=== PATIENT | male | born 1940 | race Caucasian/White ===

== ENCOUNTER → 2017-01-12 | Outpatient (CLI) | payer MEDICARE, BC ==
--- NOTE | 2017-01-12 09:44 | XR ---
EXAMINATION TYPE: XR chest 2V DATE OF EXAM: 01/12/2017 9:37 AM HISTORY: Z01.818 pre op,I10 htn. REFERENCE: Previous study dated 02/26/2013. FINDINGS: The lungs are overinflated but clear. Pleural spaces are clear. The heart is not enlarged. Note is made of mild hypertrophic changes in both AC joints. There is hypertrophic spondylosis within the spine. IMPRESSION: 1. COPD. 2. NO ACUTE INTRATHORACIC ABNORMALITY.
[2017-01-12 09:45] LABS: EKG EKG PERFORMED
[2017-01-12 10:37] LABS: Basophils # (A) 0.1 k/uL (0-0.2); Basophils % (A) 1 %; CH 30.6; CHCM 33.7; Eosinophils # (A) 0.6 k/uL (0-0.7); Eosinophils % (A) 12 %; HCT 42.8 % (39.0-53.0); HDW 2.72; Luc # (Auto) 0.12; Luc % (Auto) 2; Lymphocytes # (A) 1.8 k/uL (1.0-4.8); Lymphocytes % (A) 34 %; MCH 29.8 pg (25.0-35.0); MCHC 32.6 g/dL (31.0-37.0); MCV 91.2 fL (80.0-100.0); Mean Platelet Volume 7.6; Monocytes # (A) 0.4 k/uL (0-1.0); Monocytes % (A) 7 %; Neutrophils # (A) 2.3 k/uL (1.3-7.7); Neutrophils % (A) 44 %; RBC 4.69 m/uL (4.30-5.90); RDW 12.8 % (11.5-15.5); WBC 5.3 k/uL (3.8-10.6); WBC (Perox) 5.37
[2017-01-12 10:39] LABS: INR 1.1 (<1.1); Partial Thromboplastin Time 25.4 sec (22.0-30.0); Prothrombin Time 10.8 sec (9.0-12.0)
[2017-01-12 10:48] LABS: ALT 21 U/L (21-72); AST 18 U/L (17-59); Alkaline Phosphatase 92 U/L (38-126); Anion Gap 11 mmol/L; Blood Urea Nitrogen 15 mg/dL (9-20); Calcium 9.6 mg/dL (8.4-10.2); Carbon Dioxide 27 mmol/L (22-30); Chloride 104 mmol/L (98-107); Glucose 100 mg/dL (74-99); Non-African American GFR(MDRD) >60 (>60 ml/min/1.73 sqM); Potassium 4.5 mmol/L (3.5-5.1); Sodium 142 mmol/L (137-145); Total Bilirubin 0.5 mg/dL (0.2-1.3); Total Protein 7.4 g/dL (6.3-8.2)
[2017-01-12 11:34] LABS: Appearance,Urine Clear (Clear); Bilirubin,Urine Negative (Negative); Glucose,Urine (UA) Negative (Negative); Ketones,Urine Negative (Negative); Leukocyte Esterase,Urine Negative (Negative); Nitrite,Urine Negative (Negative); Protein,Urine Negative (Negative); Specific Gravity,Urine 1.017 (1.001-1.035); UA Billing (MACRO vs. MICRO) CHEM; Urobilinogen,Urine <2.0 mg/dL (<2.0)
== END | disposition home or self-care (01) ==
LOC: RADXRMAIN 09:23
PROVIDERS: ATTEND Family Medicine
DX: Z01.818 Encounter for other preprocedural examination (principal); I10 Essential (primary) hypertension; J44.9 Chronic obstructive pulmonary disease, unspecified; F10.20 Alcohol dependence, uncomplicated
CPT/HCPCS: 36415; 71020; 80053; 81003; 85025; 85610; 85730; 93005

== ENCOUNTER 2017-02-10 07:51 | Emergency (ER) | payer MEDICARE, BC ==
[2017-02-10 08:00] VITALS: BP 139/72; PULSE 84; RESP 20; TEMP 99
--- NOTE | 2017-02-10 08:47 | XR ---
EXAMINATION TYPE: XR shoulder complete LT DATE OF EXAM: 02/10/2017 CLINICAL HISTORY: Left shoulder pain after gardening injury. Left shoulder surgery 2.5 weeks ago. TECHNIQUE: Three views of the left shoulder are obtained. COMPARISON: Chest x-ray January 12, 2017. FINDINGS: There is no acute fracture/dislocation evident in the left shoulder. Spurring at acromiocl avicular joint is redemonstrated. There is interval surgery with metallic hardware from reverse shoul viola arthroplasty identified. Position is satisfactory. The visualized ribs are intact and unremarkabl e. IMPRESSION: There is no acute fracture or dislocation in the left shoulder.
--- NOTE | 2017-02-10 08:55 | ED ---
General Adult HPI - General Chief complaint: Extremity Injury, Upper Stated complaint: left shoulder pain Time Seen by Provider: 02/10/17 08:10 Source: patient, RN notes reviewed Mode of arrival: ambulatory Limitations: no limitations - History of Present Illness Initial comments: Patient's patient 76-year-old male who presents emergency room today with a chief complaint of increased pain to the left shoulder. He does admit to recent surgery performed on 01/24/2017. He states he had a shoulder replacement. Patient does admit that he ran out of his Percocet 2 days ago. He states that yesterday he was doing some yard work he did have a sling on. He states is unsure. Over did it. He states down to his orthopedic over the phone advised him come to the emergency room for an x-ray. Patient admits that he's had some chronic pain numbness and tingling going down the left arm since surgery there is no new symptoms other than pain to the left shoulder. Patient denies any recent fever, chills, shortness of breath, chest pain, back pain, abdominal pain, nausea or vomiting, dysuria or hematuria, constipation or diarrhea, headaches or visual changes, or any other complaints. - Related Data Home Medications Medication Instructions Recorded Confirmed Pravastatin Sodium [Pravachol] 1 tab PO HS 02/10/17 02/10/17 amLODIPine [Norvasc] 1 tab PO DAILY 02/10/17 02/10/17 Previous Rx's Medication Instructions Recorded Hydrocodone/Acetaminophen [[place] 1 each PO Q6HR PRN #20 tab 02/10/17 5-325] Allergies Allergy/AdvReac Type Severity Reaction Status Date / Time No Known Allergies Allergy Verified 02/10/17 08:00 Review of Systems ROS Statement: Those systems with pertinent positive or pertinent negative responses have been documented in the HPI. ROS Other: All systems not noted in ROS Statement are negative. Past Medical History Past Medical History: Cancer, Hyperlipidemia, Sleep Apnea/CPAP/BIPAP Additional Past Medical History / Comment(s): PROTATE CANCER. USES CPAP. History of Any Multi-Drug Resistant Organisms: None Reported Past Surgical History: Back Surgery, Bladder Surgery, Orthopedic Surgery Additional Past Surgical History / Comment(s): LOWER BACK SURGERY. GROWTH ON URETER? hip replacement Past Anesthesia/Blood Transfusion Reactions: No Reported Reaction Past Psychological History: No Psychological Hx Reported Smoking Status: Never smoker Past Alcohol Use History: Occasional Past Drug Use History: None Reported - Past Family History Mother Family Medical History: No Reported History General Exam - General Exam Comments Initial Comments: General: The patient is awake and alert, in no distress, and does not appear acutely ill. Neck: The neck is supple, there is no tenderness or JVD. Cardiovascular: There is a regular rate and rhythm. No murmur, rub or gallop is appreciated. Respiratory: Lungs are clear to auscultation, respirations are non-labored, breath sounds are equal. No wheezes, stridor, rales, or rhonchi. Musculoskeletal: Normal appearance of the left shoulder obvious deformity. Shows limited range of motion due to pain. Sensations are intact with pulses equal bilaterally 2+. Neurological: A&O x 3. CN II-XII intact, There are no obvious motor or sensory deficits. Coordination appears grossly intact. Speech is normal. Skin: Skin is warm and dry and no rashes or lesions are noted. Psychiatric: Normal mood and affect. Limitations: no limitations Course Vital Signs 02/10/17 07:56 Temperature 99 F Pulse Rate 84 Respiratory 20 Rate Blood Pressure 139/72 O2 Sat by Pulse 97 Oximetry Medical Decision Making - Medical Decision Making X-ray reviewed and shows stable hardware with no other acute abnormalities. Results were discussed with the patient. Patient will be provided a short prescription of [place] advised follow-up with orthopedic doctor. Disposition Clinical Impression: Shoulder pain Disposition: HOME SELF-CARE Condition: Good Instructions: Shoulder Pain (ED) Additional Instructions: Please follow-up with your orthopedic doctor over the next 2 days. Please use pain medication as discussed and return to emergency room if there is any increase or worsening of symptoms or any other concerns. Prescriptions: Hydrocodone/Acetaminophen [[place] 5-325] 1 each PO Q6HR PRN #20 tab PRN Reason: Pain Referrals: Guillermo Dudley Jr, DO [Primary Care Provider] - 1-2 days Time of Disposition: 08:52
== END 2017-02-10 08:56 | disposition home or self-care (01) ==
LOC: EC 07:51
DX: M25.512 Pain in left shoulder (principal); E78.5 Hyperlipidemia, unspecified; Z79.899 Other long term (current) drug therapy; Z96.612 Presence of left artificial shoulder joint; Z85.46 Personal history of malignant neoplasm of prostate; Z98.890 Other specified postprocedural states
CPT/HCPCS: 99283

== ENCOUNTER 2017-03-07 10:50 | Emergency (ER) | payer MEDICARE, BC ==
[2017-03-07] MEDS ORDERED: MORPHINE SULFATE 4 MG/ML SYRINGE IV STA (11:21)
[2017-03-07] MEDS ORDERED: SODIUM CHLORIDE 0.9% 500 ML IV STA (11:21)
[2017-03-07] MEDS ORDERED: ONDANSETRON 4 MG/2 ML VIAL IVP STA (11:21)
[2017-03-07] MEDS ORDERED: SODIUM CHLORIDE 0.9% 1,000 ML IV STA ×2 (11:21)
[2017-03-07 12:25] LABS: ALT 40 U/L (21-72); AST 17 U/L (17-59); Alkaline Phosphatase 192 U/L (38-126); Anion Gap 11 mmol/L; Blood Urea Nitrogen 16 mg/dL (9-20); Calcium 9.7 mg/dL (8.4-10.2); Carbon Dioxide 26 mmol/L (22-30); Chloride 100 mmol/L (98-107); Glucose 120 mg/dL (74-99); Non-African American GFR(MDRD) >60 (>60 ml/min/1.73 sqM); Phosphorous 4.1 mg/dL (2.5-4.5); Potassium 4.6 mmol/L (3.5-5.1); Sodium 137 mmol/L (137-145); Total Bilirubin 0.9 mg/dL (0.2-1.3); Total Protein 7.6 g/dL (6.3-8.2)
[2017-03-07 12:27] LABS: Appearance,Urine Clear (Clear); Bilirubin,Urine Negative (Negative); Glucose,Urine (UA) Negative (Negative); Ketones,Urine Negative (Negative); Leukocyte Esterase,Urine Negative (Negative); Nitrite,Urine Negative (Negative); PH, Urine 5.5 (5.0-8.0); Protein,Urine Trace (Negative); Specific Gravity,Urine 1.022 (1.001-1.035); UA Billing (MACRO vs. MICRO) CHEM; Urobilinogen,Urine <2.0 mg/dL (<2.0)
--- NOTE | 2017-03-07 12:34 | ED ---
General Adult HPI - General Chief complaint: Neck Pain/Injury Stated complaint: rt side pain Time Seen by Provider: 03/07/17 11:00 Source: patient, RN notes reviewed, old records reviewed Mode of arrival: ambulatory Limitations: physical limitation - History of Present Illness Initial comments: This is a 76-year-old male to the ER for evaluation for this patient presents today for evaluation of headache, neck pain, shoulder pain. Upper back pain. Patient has significant history of shoulder surgery recently, recent history of stroke. Patient's symptoms going on for 3 days, he states he did overdo it in the yard last 3 days ago and has had increasing symptoms since then. No nausea vomiting no chest pain nephrosis of breath no fevers. No trauma. Patient was seen by family doctor today and sent to emergency room - Related Data Home Medications Medication Instructions Recorded Confirmed Pravastatin Sodium [Pravachol] 40 mg PO HS 02/10/17 03/07/17 amLODIPine [Norvasc] 5 mg PO DAILY 02/10/17 03/07/17 Acetaminophen [Tylenol] 325 mg PO Q6H PRN 03/07/17 03/07/17 L.acidoph,Paracasei, B.lactis 1 cap PO DAILY 03/07/17 03/07/17 [Probiotic] Turmeric Root Extract [Turmeric] 500 mg PO DAILY 03/07/17 03/07/17 oxyCODONE HCL [Roxicodone] 5 - 10 mg PO Q6H PRN 03/07/17 03/07/17 Allergies Allergy/AdvReac Type Severity Reaction Status Date / Time No Known Allergies Allergy Verified 03/07/17 11:45 Review of Systems ROS Statement: Those systems with pertinent positive or pertinent negative responses have been documented in the HPI. ROS Other: All systems not noted in ROS Statement are negative. Past Medical History Past Medical History: Cancer, Hyperlipidemia, Sleep Apnea/CPAP/BIPAP Additional Past Medical History / Comment(s): PROTATE CANCER. USES CPAP. History of Any Multi-Drug Resistant Organisms: None Reported Past Surgical History: Back Surgery, Bladder Surgery, Orthopedic Surgery Additional Past Surgical History / Comment(s): LOWER BACK SURGERY. GROWTH ON URETER? hip replacement Past Anesthesia/Blood Transfusion Reactions: No Reported Reaction Past Psychological History: No Psychological Hx Reported Smoking Status: Never smoker Past Alcohol Use History: Occasional Past Drug Use History: None Reported - Past Family History Mother Family Medical History: No Reported History General Exam Limitations: physical limitation General appearance: alert, in no apparent distress, anxious Head exam: Present: atraumatic, normocephalic, normal inspection Eye exam: Present: normal appearance, PERRL, EOMI. Absent: scleral icterus, conjunctival injection, periorbital swelling ENT exam: Present: normal exam, mucous membranes moist Neck exam: Present: normal inspection. Absent: tenderness, meningismus, lymphadenopathy Respiratory exam: Present: normal lung sounds bilaterally. Absent: respiratory distress, wheezes, rales, rhonchi, stridor Cardiovascular Exam: Present: regular rate, normal rhythm, normal heart sounds. Absent: systolic murmur, diastolic murmur, rubs, gallop, clicks GI/Abdominal exam: Present: soft, normal bowel sounds. Absent: distended, tenderness, guarding, rebound, rigid Extremities exam: Present: normal inspection, full ROM, normal capillary refill. Absent: tenderness, pedal edema, joint swelling, calf tenderness Back exam: Present: normal inspection Neurological exam: Present: alert, oriented X3, CN II-XII intact Psychiatric exam: Present: normal affect, normal mood Skin exam: Present: warm, dry, intact, normal color. Absent: rash Course Vital Signs 03/07/17 03/07/17 03/07/17 10:54 12:18 13:42 Temperature 97.5 F L 99.1 F Pulse Rate 80 83 Respiratory 20 16 Rate Blood Pressure 181/82 161/72 O2 Sat by Pulse 98 96 Oximetry - Reevaluation(s) Reevaluation #1: 03/07/17 14:14 spoke with patient PCP re symptoms Reevaluation #2: 03/07/17 14:51 Patient with difficult to control pain, EKG Findings - EKG Comments: EKG Findings:: EKG shows normal sinus rhythm rate of 77, MD 134, QRS 78, QTC 418 Medical Decision Making - Medical Decision Making [facility] ER for evaluation of neck pain, neck pain and right side of neck as well as left-sided neck, paraspinal. Patient's pain is improved at this time. Imaging is negative lab work is normal patient will be discharged home - Lab Data Result diagrams: 03/07/17 12:00 03/07/17 12:00 Lab Results 07/01/1703/07/17 03/07/17 Range/Units 12:00 12:00 12:00 WBC 9.5 (3.8-10.6) k/uL RBC 4.59 (4.30-5.90) m/uL Hgb 13.5 (13.0-17.5) gm/dL Hct 39.1 (39.0-53.0) % MCV 85.2 D (80.0-100.0) fL MCH 29.3 (25.0-35.0) pg MCHC 34.4 (31.0-37.0) g/dL RDW 13.3 (11.5-15.5) % Plt Count 257 (150-450) k/uL Neutrophils % 77 % Lymphocytes % 13 % Monocytes % 7 % Eosinophils % 1 % Basophils % 1 % Neutrophils # 7.3 (1.3-7.7) k/uL Lymphocytes # 1.2 (1.0-4.8) k/uL Monocytes # 0.6 (0-1.0) k/uL Eosinophils # 0.1 (0-0.7) k/uL Basophils # 0.1 (0-0.2) k/uL PT (9.0-12.0) sec INR (<1.1) APTT (22.0-30.0) sec Sodium 137 (137-145) mmol/L Potassium 4.6 (3.5-5.1) mmol/L Chloride 100 (98-107) mmol/L Carbon Dioxide 26 (22-30) mmol/L Anion Gap 11 mmol/L BUN 16 (9-20) mg/dL Creatinine 0.82 (0.66-1.25) mg/dL Est GFR (MDRD) Af Amer >60 (>60 ml/min/1.73 sqM) Est GFR (MDRD) Non-Af >60 (>60 ml/min/1.73 sqM) Glucose 120 H (74-99) mg/dL Calcium 9.7 (8.4-10.2) mg/dL Phosphorus 4.1 (2.5-4.5) mg/dL Magnesium 2.0 (1.6-2.3) mg/dL Total Bilirubin 0.9 (0.2-1.3) mg/dL AST 17 (17-59) U/L ALT 40 (21-72) U/L Alkaline Phosphatase 192 H (38-126) U/L Total Creatine Kinase 46 L (55-170) U/L CK-MB (CK-2) 0.9 (0.0-2.4) ng/mL CK-MB (CK-2) Rel Index 2.0 Troponin I <0.012 (0.000-0.034) ng/mL Total Protein 7.6 (6.3-8.2) g/dL Albumin 4.3 (3.5-5.0) g/dL Urine Color Urine Appearance (Clear) Urine pH (5.0-8.0) Ur Specific [place] (1.001-1.035) Urine Protein (Negative) Urine Glucose (UA) (Negative) Urine Ketones (Negative) Urine Blood (Negative) Urine Nitrite (Negative) Urine Bilirubin (Negative) Urine Urobilinogen (<2.0) mg/dL Ur Leukocyte Esterase (Negative) 03/07/17 03/07/17 Range/Units 12:00 12:00 WBC (3.8-10.6) k/uL RBC (4.30-5.90) m/uL Hgb (13.0-17.5) gm/dL Hct (39.0-53.0) % MCV (80.0-100.0) fL MCH (25.0-35.0) pg MCHC (31.0-37.0) g/dL RDW (11.5-15.5) % Plt Count (150-450) k/uL Neutrophils % % Lymphocytes % % Monocytes % % Eosinophils % % Basophils % % Neutrophils # (1.3-7.7) k/uL Lymphocytes # (1.0-4.8) k/uL Monocytes # (0-1.0) k/uL Eosinophils # (0-0.7) k/uL Basophils # (0-0.2) k/uL PT 11.3 (9.0-12.0) sec INR 1.1 (<1.1) APTT 28.3 (22.0-30.0) sec Sodium (137-145) mmol/L Potassium (3.5-5.1) mmol/L Chloride (98-107) mmol/L Carbon Dioxide (22-30) mmol/L Anion Gap mmol/L BUN (9-20) mg/dL Creatinine (0.66-1.25) mg/dL Est GFR (MDRD) Af Amer (>60 ml/min/1.73 sqM) Est GFR (MDRD) Non-Af (>60 ml/min/1.73 sqM) Glucose (74-99) mg/dL Calcium (8.4-10.2) mg/dL Phosphorus (2.5-4.5) mg/dL Magnesium (1.6-2.3) mg/dL Total Bilirubin (0.2-1.3) mg/dL AST (17-59) U/L ALT (21-72) U/L Alkaline Phosphatase (38-126) U/L Total Creatine Kinase (55-170) U/L CK-MB (CK-2) (0.0-2.4) ng/mL CK-MB (CK-2) Rel Index Troponin I (0.000-0.034) ng/mL Total Protein (6.3-8.2) g/dL Albumin (3.5-5.0) g/dL Urine Color Yellow Urine Appearance Clear (Clear) Urine pH 5.5 (5.0-8.0) Ur Specific [place] 1.022 (1.001-1.035) Urine Protein Trace H (Negative) Urine Glucose (UA) Negative (Negative) Urine Ketones Negative (Negative) Urine Blood Negative (Negative) Urine Nitrite Negative (Negative) Urine Bilirubin Negative (Negative) Urine Urobilinogen <2.0 (<2.0) mg/dL Ur Leukocyte Esterase Negative (Negative) - Radiology Data Radiology results: report reviewed (CT brain C-spine, angio head and neck negative for acute disease), image reviewed Disposition Clinical Impression: Shoulder pain, Strain of neck muscle Disposition: HOME SELF-CARE Condition: Good Instructions: Cervical Strain (ED), Cervical Sprain (ED) Referrals: Guillermo Dudley Jr, [Primary Care Provider] - 1-2 days
[2017-03-07 12:35] LABS: Basophils # (A) 0.1 k/uL (0-0.2); Basophils % (A) 1 %; CH 28.7; CHCM 33.8; Creatine Kinase 46 U/L (55-170); Eosinophils # (A) 0.1 k/uL (0-0.7); Eosinophils % (A) 1 %; HCT 39.1 % (39.0-53.0); HDW 2.77; HGB 13.5 gm/dL (13.0-17.5); Luc # (Auto) 0.17; Luc % (Auto) 2; Lymphocytes # (A) 1.2 k/uL (1.0-4.8); Lymphocytes % (A) 13 %; MCH 29.3 pg (25.0-35.0); MCHC 34.4 g/dL (31.0-37.0); Mean Platelet Volume 7.6; Monocytes # (A) 0.6 k/uL (0-1.0); Monocytes % (A) 7 %; Neutrophils # (A) 7.3 k/uL (1.3-7.7); Neutrophils % (A) 77 %; RBC 4.59 m/uL (4.30-5.90); RDW 13.3 % (11.5-15.5); WBC 9.5 k/uL (3.8-10.6); WBC (Perox) 9.54
[2017-03-07 12:37] LABS: INR 1.1 (<1.1); Partial Thromboplastin Time 28.3 sec (22.0-30.0); Prothrombin Time 11.3 sec (9.0-12.0)
[2017-03-07 12:38] LABS: MCV 85.2 fL (80.0-100.0)
[2017-03-07] MEDS ORDERED: HYDROmorphone 1 MG/ML 1 ML SYRINGE IVP STA (12:39)
[2017-03-07] MEDS ORDERED: DIAZEPAM 5 MG/ML 2 ML SYRINGE IVP STA (12:45)
[2017-03-07 12:48] LABS: Creatine Kinase MB 0.9 ng/mL (0.0-2.4); Troponin I <0.012 ng/mL (0.000-0.034)
[2017-03-07] MEDS: RX INFO: IV CONTRAST WAS GIVEN 1 EACH MISC MISCELLANE PRN ×2 (13:37→15:27)
[2017-03-07 13:42] VITALS: RESP 16
--- NOTE | 2017-03-07 14:17 | CT ---
EXAMINATION TYPE: CT brain nico napier DATE OF EXAM: 03/07/2017 COMPARISON: NONE HISTORY: Patient having severe neck pain, mainly right side CT DLP: 1383.[address] of the brain was performed. The ventricles, basal cisterns and sulci overlying the cerebral convexities demonstrate mild enlargem ent. There is no evidence for intracranial hemorrhage or sulcal effacement. There is decreased attenuatio n about the periventricular white matter and deep white matter of both cerebral hemispheres, compatib le with chronic small vessel ischemia. No mass effects are seen. If symptoms persist consider MRI. Osseous calvarium is intact. IMPRESSION: 1. Age related atrophic and chronic small vessel ischemic change without acute intracranial process seen at this time. CT Cervical Spine: Unenhanced CT of the cervical spine was performed with bone and soft tissue window settings submitted . Coronal and sagittal reconstruction is obtained. There is normal alignment and prevertebral soft tissues. No evidence for acute cervical fracture . Scattered degenerative disc disease and spondylosis. Biapical scarring. IMPRESSION: 1. No evidence for acute fracture or subluxation of the cervical spine.
--- NOTE | 2017-03-07 14:35 | CT ---
EXAMINATION TYPE: CT angio head neck DATE OF EXAM: 03/07/2017 COMPARISON: NONE HISTORY: Patient having severe neck pain, mainly right side CT DLP: 382.90 mGycm CONTRAST: Performed with IV Contrast, patient injected with 65 mL of Omnipaque 350. Combination Contrast CTA cervical carotids and [place] CTA cervical carotids with 3-D recons truction Contrast CTA of the cervical carotids was performed 3-D reconstruction imaging obtained at a separate workstation. Right carotid system: Mild plaque is seen of the right common carotid artery. There is mild plaque a lso noted at the carotid bulb and proximal ICA. No significant diameter reduction. ECA is patent. Right vertebral artery appears unremarkable. Left carotid system: Mild plaque is seen of the left common carotid artery. There is mild plaque als o noted at the carotid bulb and proximal ICS. No significant diameter reduction. ECA is patent. Lef t vertebral artery appears unremarkable. IMPRESSION: 1. No significant diameter reduction to account for the patient's symptoms. CTA [place] with 3-D reconstruction Contrast CTA of the [place] was performed 3-D reconstruction imaging obtained at a separate workstation. Vertebrobasilar system as well as intracranial portions of the internal carotid arteries and their ma samuel tributaries are patent. I do not see evidence for sizable aneurysm or vascular malformation. Pl ease note MRI provides greater sensitivity and specificity. Visualized brain appears grossly unremar kable. IMPRESSION: 1. No siginificant abnormality.
[2017-03-07] MEDS ORDERED: KETOROLAC 30 MG/ML 1 ML VIAL IVP STA (14:51)
[2017-03-07] MEDS ORDERED: ORPHENADRINE 30 MG/ML 2 ML VIAL IVP STA (14:51)
[2017-03-07 15:11] VITALS: BP 167/75; PULSE 88; TEMP 98.6
== END 2017-03-07 15:52 | disposition home or self-care (01) ==
LOC: EC 10:50
DX: S16.1XXA Strain of muscle, fascia and tendon at neck level, initial encounter (principal); M25.511 Pain in right shoulder; E78.5 Hyperlipidemia, unspecified; Z79.899 Other long term (current) drug therapy; X58.XXXA Exposure to other specified factors, initial encounter
CPT/HCPCS: 99285 ×2; 96374 ×2; 96375 ×6; 96361 ×4; 36415; 93005; 80053; 82550; 82553; 83735; 84100; 84484; 85025; 85610; 85730; 81003; 87086; 72125; 70496; 70450; 70498; J2270; J2360; J3360; Q9967; J2405; J1885; J1170

== ENCOUNTER → 2017-06-14 | Outpatient (CLI) | payer MEDICARE, BC ==
[2017-06-14 07:56] LABS: Basophils # (A) 0.1 k/uL (0-0.2); Basophils % (A) 2 %; CH 30.5; CHCM 33.2; Eosinophils # (A) 0.6 k/uL (0-0.7); Eosinophils % (A) 10 %; HCT 49.6 % (39.0-53.0); HDW 2.59; HGB 16.5 gm/dL (13.0-17.5); Luc # (Auto) 0.22; Luc % (Auto) 3; Lymphocytes # (A) 2.3 k/uL (1.0-4.8); Lymphocytes % (A) 34 %; MCH 30.7 pg (25.0-35.0); MCHC 33.3 g/dL (31.0-37.0); MCV 92.1 fL (80.0-100.0); Mean Platelet Volume 7.6; Monocytes # (A) 0.6 k/uL (0-1.0); Monocytes % (A) 8 %; Neutrophils % (A) 44 %; RBC 5.38 m/uL (4.30-5.90); RDW 14.8 % (11.5-15.5); WBC 6.8 k/uL (3.8-10.6); WBC (Perox) 7.07
[2017-06-14 09:32] LABS: ALT 35 U/L (21-72); AST 20 U/L (17-59); Alkaline Phosphatase 100 U/L (38-126); Blood Urea Nitrogen 20 mg/dL (9-20); Calcium 9.4 mg/dL (8.4-10.2); Carbon Dioxide 23 mmol/L (22-30); Cholesterol 262 mg/dL (<200); Glucose 99 mg/dL (74-99); HDL Cholesterol 45 mg/dL (40-60); Non-African American GFR(MDRD) >60 (>60 ml/min/1.73 sqM); Potassium 5.1 mmol/L (3.5-5.1); Sodium 141 mmol/L (137-145); Total Bilirubin 0.5 mg/dL (0.2-1.3); Total Protein 7.4 g/dL (6.3-8.2)
[2017-06-14 10:09] LABS: Anion Gap 12 mmol/L; Chloride 106 mmol/L (98-107)
[2017-06-14 10:10] LABS: Prostate Specific Antigen <0.10 ng/mL (0.00-4.00)
== END | disposition home or self-care (01) ==
LOC: LABWHC1 07:05
PROVIDERS: ATTEND Family Medicine
DX: Z00.00 Encounter for general adult medical examination without abnormal findings (principal); I10 Essential (primary) hypertension; Z85.46 Personal history of malignant neoplasm of prostate; Z86.73 Personal history of transient ischemic attack (TIA), and cerebral infarction without residual deficits
CPT/HCPCS: 36415; 80053; 80061; 84153; 84439; 84443; 85025

== ENCOUNTER → 2017-07-10 | Outpatient (CLI) | payer MEDICARE, BC ==
--- NOTE | 2017-07-10 09:18 | US ---
EXAMINATION TYPE: US carotid duplex BILAT DATE OF EXAM: 07/10/2017 COMPARISON: NONE CLINICAL HISTORY: 77-year-old male with headache and neck pain, CVA I63.9. TECHNIQUE: Carotid duplex ultrasound examination. Indirect Doppler criteria was utilized. FINDINGS: Mckeon scale images show moderate atherosclerotic change at the right bifurcation and mild on the left. EXAM MEASUREMENTS: RIGHT: Peak Systolic Velocity (PSV) cm/sec ----- Right CCA: 71.0 ----- Right ICA: 84.3 ----- Right ECA: 62.2 ICA/CCA ratio: 1.2 RIGHT: End Diastole cm/sec ----- Right CCA: 0.0 ----- Right ICA: 18.3 ----- Right ECA: 0.0 LEFT: Peak Systolic Velocity (PSV) cm/sec ----- Left CCA: 94.9 ----- Left ICA: 77.2 ----- Left ECA: 83.9 ICA/CCA ratio: 0.8 LEFT: End Diastole cm/sec ----- Left CCA: 13.3 ----- Left ICA: 21.6 ----- Left ECA: 7.3 VERTEBRALS (direction of flow): Right Vertebral: Antegrade Left Vertebral: Antegrade Rhythm: Normal IMPRESSION: No hemodynamically significant stenosis appreciated in either internal carotid artery. Criteria for Assigning % of Stenosis / Diameter reduction (Estimation based on the indirect measurements of the internal carotid artery velocities (ICA PSV). 1. Normal (no stenosis)=ICA PSV < 125 cm/s: ratio < 2.0: ICA EDV<40 cm/s. 2. Less than 50% stenosis=ICA PSV < 125 cm/s: ratio < 2.0: ICA EDV<40 cm/s. 3. 50 to 69% stenosis=ICA PSV of 125 to 230 cm/s: ration 2.0 ? 4.0: ICA EDV 40-100 cm/s. 4. Greater than 70% stenosis to near occlusion= ICA PSV > 230 cm/s: ratio > 4.0: ICA EDV > 100 cm/s. 5. Near occlusion= ICA PSV velocities may be low or undetectable: variable ratio and ICA EDV. 6. Total occlusion=unable to detect flow.
== END | disposition home or self-care (01) ==
LOC: RADUSWWP 08:09
PROVIDERS: ATTEND Psychiatry & Neurology Neurology
DX: I63.9 Cerebral infarction, unspecified (principal)
CPT/HCPCS: 93880

== ENCOUNTER → 2018-03-11 | Outpatient (CLI) | payer MEDICARE, BC ==
--- NOTE | 2018-03-11 13:58 | FL ---
MODIFIED SWALLOW / DEGLUTITION STUDY DATE OF EXAM: 03/11/2018 CLINICAL HISTORY: 77-year-old male Dysphagia. Patient with history of CVA and coughing with solid con sistencies. TECHNIQUE: Deglutition study is performed utilizing thin liquid barium, barium thick applesauce, and barium coated cracker. Total fluoroscopy time: 1 minute 6 seconds. Total images: None. Real-time fluoroscopy support was provided to speech pathology. COMPARISON: None. FINDINGS: The oral and pharyngeal phases show satisfactory initiation and propagation with all modalities teste d. Normal mastication is seen with solid modalities tested. There is no evidence of penetration or aspiration with any modality tested. No significant pharyngeal residue was appreciated. IMPRESSION: 1. Functional swallow. 2. Please refer to speech therapist notes for further details if necessary.
== END | disposition home or self-care (01) ==
LOC: RADFLMAIN 11:16
PROVIDERS: ATTEND Psychiatry & Neurology Neurology
DX: R13.10 Dysphagia, unspecified (principal)
CPT/HCPCS: 74230

== ENCOUNTER → 2018-04-24 | Outpatient (CLI) | payer MEDICARE, BC ==
--- NOTE | 2018-04-24 18:36 | CONS ---
CONSULTATION DATE OF SERVICE: 04/24/2018 This 77-year-old gentleman has been evaluated in sleep center for obstructive sleep apnea-hypopnea syndrome. The patient has history of obstructive sleep apnea for many years. He is on treatment with CPAP. He is using equipment every night since previous titration which was done in 2011. Patient increased his weight from 212 pounds up to 228 pounds. He had a stroke in August of 2016 while he already was on treatment with CPAP. Stroke was hemorrhagic. Presently, his sleep schedule from 9:00 p.m. to 6:00 a.m. to 7:00 a.m. no problems with falling asleep, although he has TV set in bedroom. He wakes up from sleep 2 times with nocturia. He takes a nap once after lunch. [place] Sleepiness Scale significantly increased to 14. 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 PAST SURGICAL HISTORY: Left hip replacement, left shoulder replacement, surgical treatment of prostate CA, back fusion, L4-5, S1. MEDICATIONS: 1. Norvasc. 2. Pravastatin. SOCIAL HISTORY: Negative for smoking. Alcohol consumption: 1 glass of wine with dinner daily. FAMILY HISTORY: Hypertension, hyperlipidemia, stroke, cancer. REVIEW OF SYSTEMS: Some numbness, mostly on the left side, changes of the feeling, difficulties to walk, changes of the balance, problem with balance, sleepiness during the day. PHYSICAL EXAMINATION: GENERAL A 77-year-old gentleman without distress. VITAL SIGNS BP 174/88, HR 68, RR 16, height 5 feet 7 inches, weight 228.2, body mass index 35.7, temperature 98.4, oxygen saturation at room air 92%. HEENT PERRLA, EOMI, evaluation of oropharynx showed tongue protrudes midline, extremely low position of soft palate. Neck Supple, no JVD. Thyroid is not palpable. Wide neck, 18-1/4 inches in circumference. LUNGS Clear to percussion and to auscultation. Good air exchange. No wheezing or rhonchi. HEART S1, S2 regular. No murmurs, gallops, or rubs. ABDOMEN obese, soft and nontender. Bowel sounds are present. No organomegaly appreciated. EXTREMITIES No clubbing or cyanosis. ANIMAL DAYCARE PROVIDER Awake, alert, and oriented X3. Cranial nerves 2 to 7 intact. There is no fasciculation or atrophy. noted. Some abnormalities of sensation on the left side, slightly unsteady gait. IMPRESSION: 1. Obstructive sleep apnea-hypopnea syndrome. The patient continued to use his CPAP equipment 100% of the time. Awakenings from sleep, sleepiness during the day while on treatment with CPAP. 2. Obesity, BMI 35.7. 3. History of stroke in August 2016 with residual weakness on the left side. 4. Status post left hip replacement. 5. Status post left shoulder replacement. 6. Hypertension, increased blood pressure today in the office. 7. Hyperlipidemia. 8. Status post back fusion, L4-5, S1. 9. History of prostate carcinoma, status post surgical treatment. PLAN: 1. Repeat CPAP titration for earlier for evaluation of effective CPAP pressure at the present time and after that, patient should get new CPAP unit. 2. Continue using CPAP equipment every night. 3. Sleep hygiene with regular time in bed for at least 8 hours. 4. No driving if feeling any sleepiness. 5. Fall precautions. 6. The patient was recommended to decrease amount of using alcohol and possibly stop it. Thank you very much for allowing me to participate in management of your patient. Sincerely, Salvador Aly MD, PhD, FAASM Diplomat of [employer] [place] [place] T[employer] Worker of [facility] [place] MMCRYSTAL / BRE: [id number] /
== END | disposition home or self-care (01) ==
LOC: SLEEP 16:06
PROVIDERS: ATTEND Internal Medicine
DX: G47.33 Obstructive sleep apnea (adult) (pediatric) (principal); I10 Essential (primary) hypertension; E78.5 Hyperlipidemia, unspecified; E66.9 Obesity, unspecified; Z68.35 Body mass index [BMI] 35.0-35.9, adult; Z96.642 Presence of left artificial hip joint; Z96.612 Presence of left artificial shoulder joint; Z86.73 Personal history of transient ischemic attack (TIA), and cerebral infarction without residual deficits; Z85.46 Personal history of malignant neoplasm of prostate; Z99.89 Dependence on other enabling machines and devices; Z98.1 Arthrodesis status; Z79.899 Other long term (current) drug therapy; Z98.890 Other specified postprocedural states
CPT/HCPCS: 99211

== ENCOUNTER → 2018-08-06 | Outpatient (CLI) | payer MEDICARE, BC ==
--- NOTE | 2018-08-06 19:37 | MR ---
EXAMINATION TYPE: MR brain wo/w con DATE OF EXAM: 08/06/2018 COMPARISON: CT brain 03/07/2017 HISTORY: TIA TECHNIQUE: Multiplanar, multisequence images of the brain and brainstem is performed without and with IV contras t, utilizing 10 mL intravenous Gadavist . FINDINGS: Diffusion weighted images demonstrate no evidence of a recent infarct. There is low signal present on inversion recovery and T2-weighted sequences at the level of the patient's low attenuatio n seen on prior CT brain suggesting hemosiderin deposition, similar low signal seen on diffusion-weig hted images with some serpiginous high signal not characteristic of subacute hemorrhage. There is no extra-axial fluid collection or significant white matter signal abnormality. The ventricular system and cisternal spaces are normal in size and appearance. The brain volume is age appropriate. Midline structures demonstrate normal morphology. The craniocervical junction appears within normal limits. Post contrast images demonstrate no abnormal enhancement. The dural venous sinuses appear pa tent. The visualized sinuses are remarkable for inflammatory change in the sphenoid, bilateral maxill kareem sinuses, ethmoid air cells and frontal sinus and the globes are intact. 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 No evidence of acute ischemia. Sinus disease.
--- NOTE | 2018-08-06 19:46 | MR ---
EXAMINATION TYPE: MR angio head wo con DATE OF EXAM: 08/06/2018 COMPARISON: MR brain same date HISTORY: Personal history of tia TECHNIQUE: Time of flight images focusing on the [place] were performed without contrast. Th ree-dimensional reconstructions were performed. FINDINGS: The vertebrobasilar system, internal carotid arteries are patent. There is no evident disse ction, aneurysm, embolus, or vascular malformation. IMPRESSION: Normal [place] MRA.
== END | disposition home or self-care (01) ==
LOC: RADMRIMAIN 10:48
PROVIDERS: ATTEND Family Medicine
DX: Z09 Encounter for follow-up examination after completed treatment for conditions other than malignant neoplasm (principal); Z86.73 Personal history of transient ischemic attack (TIA), and cerebral infarction without residual deficits
CPT/HCPCS: 82565; 84520; 70544; 70553; 36415; A9585

== ENCOUNTER → 2018-08-21 | Outpatient (CLI) | payer MEDICARE, BC ==
--- NOTE | 2018-08-21 17:00 | PN ---
PROGRESS NOTE DATE OF SERVICE: 08/21/2018 This patient is a 78-year-old gentleman who has been followed in the sleep center for treatment of obstructive sleep apnea-hypopnea syndrome. Recently the patient received a new CPAP unit and today is his first visit with the new CPAP unit. The patient continues to use his CPAP equipment every night for the whole night, but with the new CPAP he feels that the pressure is much higher in the new CPAP unit versus the previous pressure which he used before. Previous pressure was 10 cm of water. At present, after titration, his maximal pressure is up to 15 cm of water. The patient feels that his mouth is dry, and sometimes there is a gargling sound in his mask and tube. I checked his CPAP unit. Range of the pressure is from 5 to 15 cm of water. Most of the time pressure is in the range of 14 cm of water. Humidifier is at the level of 5. Usage is 100% of the nights for more than 4 hours, with average usage 10.1 hours per night. Leak is 26 L/minute. Apnea-hypopnea index 2.8, which is within normal range. [place] Sleepiness Scale has increased to 13. MEDICATIONS: Norvasc and pravastatin. PHYSICAL EXAMINATION: GENERAL: A pleasant patient in no distress. VITAL SIGNS: BP 147/75, HR 82, RR 16, weight 228.4, temperature 97.7. Patient's weight has increased by 16 pounds since the sleep study. HEENT: PERRLA, EOMI. Evaluation of oropharynx showed tongue protrudes midline. Extremely low position of soft palate. NECK: Supple. No JVD. Thyroid is not palpable. LUNGS: Clear to percussion and to auscultation. Good air exchange. No wheezing or rhonchi. HEART: S1, S2 regular. No murmurs, gallops or rubs. ABDOMEN: Obese. EXTREMITIES: No clubbing or cyanosis. 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 IMPRESSION: 1. Obstructive sleep apnea-hypopnea syndrome. The patient demonstrated 100% compliance with treatment, benefitting from treatment. 2. Obesity. 3. History of stroke 2 years ago. 4. Status post left hip replacement. 5. Status post left shoulder replacement. 6. Hypertension. 7. Hyperlipidemia. 8. Status post back fusion. 9. History of prostate carcinoma, status post surgical treatment. PLAN: 1. Patient will continue to use CPAP equipment every night for the whole night. 2. We will try to decrease maximal pressure to 13 cm of water. 3. I believe dryness in the mouth is related to opening his mouth during sleep. Leak is slightly high for the nasal pillow mask. We will try a chinstrap. 4. Losing weight. 5. Sleep hygiene with regular time in bed for 8 hours. 6. No driving if feeling any sleepiness. 7. I discussed with the patient the position of his CPAP unit. CPAP unit should stay lower than his head to prevent movement of the water from condensation from the tube to the mask. 8. Prescription for all necessary CPAP supplies. Thank you very much for allowing me to participate in the management of your patient. Sincerely, Salvador Aly MD, PhD, FAASM Diplomat of [employer] [employer] [place] [employer] Manager Technical Services of [facility] [place] MMODL / MOHINDERN: [id number] /
== END | disposition home or self-care (01) ==
LOC: SLEEP 13:17
PROVIDERS: ATTEND Internal Medicine
DX: G47.33 Obstructive sleep apnea (adult) (pediatric) (principal); E66.9 Obesity, unspecified; I10 Essential (primary) hypertension; E78.5 Hyperlipidemia, unspecified; Z86.73 Personal history of transient ischemic attack (TIA), and cerebral infarction without residual deficits; Z96.642 Presence of left artificial hip joint; Z85.46 Personal history of malignant neoplasm of prostate; Z98.1 Arthrodesis status; Z79.899 Other long term (current) drug therapy; Z99.89 Dependence on other enabling machines and devices

== ENCOUNTER → 2019-08-07 | Outpatient (CLI) | payer MEDICARE, BC ==
--- NOTE | 2019-08-07 13:04 | SFUN ---
SLEEP CENTER FOLLOW UP NOTE DATE OF SERVICE: 08/07/2019 A 79-year-old gentleman has been followed in the Sleep Center for treatment of obstructive sleep apnea-hypopnea syndrome. Patient continued to use his CPAP equipment every night for the whole night without significant problems. Sleeps well with that, getting all his supplies in time. [place] Sleepiness Scale today is 10, which is borderline. I checked CPAP unit, range of the pressure 5-13, average pressure 12.5. Leak is slightly high for the nasal pillow mask 34 L/minute. At the same time, apnea-hypopnea index was 2.0, which is absolutely normal. MEDICATIONS: Norvasc, pravastatin. PHYSICAL EXAM: Patient in no distress. BP 152/80, HR 69, RR 14, height 5, 7-1/4, weight 216.6, body mass index 33.6, temperature 98.4, oxygen saturation at room air 95%. OROPHARYNX: Extremely low soft palate. Mallampati 4. ABDOMEN: Slightly obese. NECK: Supple, no JVD. Thyroid is not palpable. LUNGS: Clear to percussion and to auscultation. Good air exchange. No wheezing or rhonchi. HEART: S1, S2 regular. No murmurs, gallops, or rubs. EXTREMITIES: No clubbing or cyanosis. 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 Cranial nerves 2 to 7 intact. There is no fasciculation or atrophy. noted. No focal deficits observed. IMPRESSION: 1. Obstructive sleep apnea-hypopnea syndrome. Patient demonstrated great compliance with treatment, benefitting from treatment. Reading from CPAP unit showed slightly higher leak from the mask. 2. Obesity. 3. History of stroke about 3 years ago. 4. Status post left hip replacement. 5. Status post left shoulder replacement. 6. Hypertension. 7. Hyperlipidemia. 8. Status post back fusion. 9. History of prostate carcinoma, status post surgical treatment. PLAN: 1. Patient will continue to use CPAP equipment every night for the whole night. 2. Patient will use a chin strap. 3. Losing weight. 4. Sleep hygiene with regular time in bed for 7-1/2 or 8 hours. 5. No driving if feeling sleepiness. 6. I will maintain prescriptions for all necessary CPAP supplies. 7. Followup visit in 1 year or earlier if patient has any problems. Thank you very much for allowing me to participate in the management of your patient. Sincerely, Salvador Aly MD, PhD, FAASM Diplomat of [place] [employer] [place] [employer] Worker of [facility] [place] MMCRYSTAL / BRE: [id number] /
== END | disposition home or self-care (01) ==
LOC: SLEEP 09:35
PROVIDERS: ATTEND Internal Medicine
DX: G47.33 Obstructive sleep apnea (adult) (pediatric) (principal); E66.9 Obesity, unspecified; I10 Essential (primary) hypertension; E78.5 Hyperlipidemia, unspecified; Z68.33 Body mass index [BMI] 33.0-33.9, adult; Z86.73 Personal history of transient ischemic attack (TIA), and cerebral infarction without residual deficits; Z85.46 Personal history of malignant neoplasm of prostate; Z96.612 Presence of left artificial shoulder joint; Z96.642 Presence of left artificial hip joint; Z98.1 Arthrodesis status; Z79.899 Other long term (current) drug therapy

== ENCOUNTER → 2019-11-03 | Outpatient (CLI) | payer MEDICARE, BC ==
[2019-11-03 16:59] LABS: Basophils # (A) 0.1 k/uL (0-0.2); Basophils % (A) 1 %; Eosinophils # (A) 0.3 k/uL (0-0.7); Eosinophils % (A) 4 %; HCT 45.8 % (39.0-53.0); HGB 15.5 gm/dL (13.0-17.5); Lymphocytes # (A) 1.9 k/uL (1.0-4.8); Lymphocytes % (A) 25 %; MCH 31.8 pg (25.0-35.0); MCHC 33.9 g/dL (31.0-37.0); MCV 93.9 fL (80.0-100.0); Mean Platelet Volume 8.9; Monocytes # (A) 0.5 k/uL (0-1.0); Monocytes % (A) 6 %; Neutrophils # (A) 4.5 k/uL (1.3-7.7); Neutrophils % (A) 61 %; Platelet Count 184 k/uL (150-450); RBC 4.88 m/uL (4.30-5.90); RDW 13.1 % (11.5-15.5); WBC 7.4 k/uL (3.8-10.6)
[2019-11-03 17:54] LABS: Erythrocyte Sedimentation Rate 6 mm/hr (0-15)
[2019-11-04 00:02] LABS: ALT 32 U/L (10-49); AST 27 U/L (14-35); African American GFR (CKD) 83.2 (60.0-200.0); Alkaline Phosphatase 97 U/L (41-126); C Reactive Protein <0.4 mg/dL (0.0-0.8); Calcium 9.6 mg/dL (8.7-10.3); Carbon Dioxide 27.4 mmol/L (21.6-31.8); Chloride 106 mmol/L (96-109); Globulin 2.3 g/dL (1.6-3.3); Glucose 90 mg/dL (70-110); Non-African American GFR(CKD) 71.8 (60.0-200.0); Sodium 143 mmol/L (135-145); Total Bilirubin 0.5 mg/dL (0.3-1.2); Total Protein 6.9 g/dL (6.2-8.2)
== END | disposition home or self-care (01) ==
LOC: LABWHC1 15:49
PROVIDERS: ATTEND Nurse Practitioner Family
DX: Z00.00 Encounter for general adult medical examination without abnormal findings (principal); R53.83 Other fatigue; R42 Dizziness and giddiness
CPT/HCPCS: 36415; 80053; 82248; 85025; 85652; 86140

== ENCOUNTER → 2020-10-19 | Outpatient (CLI) | payer MEDICARE ==
--- NOTE | 2020-10-19 13:13 | CT ---
EXAMINATION TYPE: CT brain wo con DATE OF EXAM: 10/19/2020 COMPARISON: 03/07/2017 and MRI 08/06/2018 HISTORY: 80-year-old male Vertigo, left side weakness TECHNIQUE: Examination was done in axial plane without intravenous contrast. Coronal and sagittal r econstructions performed. CT DLP: 1192 mGycm Automated exposure control for dose reduction was used. FINDINGS: There is no evidence of acute intracranial hemorrhage, acute ischemic changes, mass, mass-effect, or extra-axial fluid collection. There is no effacement of cerebral sulci or basal subarachnoid cister ns. There is no hydrocephalus. There is no midline shift. Mckeon-white matter distinction is preserv ed. Poorly defined area of subtle high density in the cortical/subcortical right lateral frontoparietal j unction, referred to the axial image 39 and sagittal image 16 corresponding to the area of hemosideri n deposition on MRI of 08/06/2018. Partially empty sella. Mild cerebral cortical volume loss similar to prior exam. Mild/moderate mucosal thickening ethmoid air cells and mild within the maxillary sinuses. Globes are intact. Mastoid air cells are well pneumatized. IMPRESSION: No acute intracranial abnormality seen. Subtle cortical/subcortical high density along the lateral as pect of the right frontoparietal junction corresponds to the area of remote infarct and chronic hemos iderin deposition seen on the 08/06/2018 MRI. No acute intracranial abnormality seen. If symptoms pers ist, repeat MRI can be performed.
== END | disposition home or self-care (01) ==
LOC: RADCTMAIN 12:34
PROVIDERS: ATTEND Family Medicine
DX: G93.89 Other specified disorders of brain (principal); I69.354 Hemiplegia and hemiparesis following cerebral infarction affecting left non-dominant side
CPT/HCPCS: 70450

== ENCOUNTER → 2020-11-03 | Outpatient (CLI) | payer MEDICARE ==
[2020-11-03 10:35] LABS: Basophils # (A) 0.05 X 10*3/uL (0.00-0.10); Basophils % (A) 0.9 %; Eosinophils # (A) 0.49 X 10*3/uL (0.04-0.35); Eosinophils % (A) 8.3 %; HCT 43.4 % (39.6-50.0); HGB 14.6 g/dL (13.0-17.0); Lymphocytes # (A) 2.03 X 10*3/uL (0.90-5.00); Lymphocytes % (A) 34.6 %; MCH 31.5 pg (27.0-32.0); MCHC 33.6 g/dL (32.0-37.0); MCV 93.5 fL (80.0-97.0); Mean Platelet Volume 10.5 fL (9.5-12.2); Monocytes # (A) 0.63 X 10*3/uL (0.20-1.00); Monocytes % (A) 10.7 %; Neutrophils # (A) 2.61 X 10*3/uL (1.80-7.70); Neutrophils % (A) 44.5 %; Platelet Count 205 X 10*3/uL (140-440); RBC 4.64 X 10*6/uL (4.40-5.60); RDW 12.1 % (11.5-14.5); WBC 5.87 X 10*3/uL (4.50-10.00)
[2020-11-03 10:49] LABS: African American GFR (CKD) 82.6 (60.0-200.0); Albumin 4.1 g/dL (3.80-4.90); Albumin/Globulin Ratio 1.28 (1.60-3.17); Anion Gap 3.4 mmol/L (4.00-12.00); Calcium 9.5 mg/dL (8.7-10.3); Carbon Dioxide 29.6 mmol/L (21.6-31.8); Chol/HDL Ratio 4.49; Globulin 3.2 g/dL (1.6-3.3); LDL Cholesterol,Calculated 121.6 mg/dL (0.0-131.0); Non-African American GFR(CKD) 71.3 (60.0-200.0); Potassium 4.6 mmol/L (3.5-5.5); Total Bilirubin 0.5 mg/dL (0.3-1.2); Total Protein 7.3 g/dL (6.2-8.2); VLDL Calculation 21.4 mg/dL (5.00-40.00)
[2020-11-03 15:29] LABS: Prostate Specific Antigen 0.1 ng/mL (0.0-6.5)
== END | disposition home or self-care (01) ==
LOC: LABWHC1 07:07
PROVIDERS: ATTEND Family Medicine
DX: Z85.46 Personal history of malignant neoplasm of prostate (principal); I69.354 Hemiplegia and hemiparesis following cerebral infarction affecting left non-dominant side
CPT/HCPCS: 36415; 80053; 80061; 84153; 84443; 85025

== ENCOUNTER 2021-01-16 19:54 | Emergency (ER) | payer MEDICARE ==
[2021-01-16 20:04] VITALS: TEMP 97.8
--- NOTE | 2021-01-16 20:28 | ED ---
Chest Pain HPI - General Chief Complaint: Chest Pain Stated Complaint: High Blood Pressure Time Seen by Provider: 01/16/21 20:10 Source: patient Mode of arrival: wheelchair Limitations: no limitations - History of Present Illness Initial Comments: 80-year-old male presents today for chief complaint of chest pain. Patient states that around 2 PM he had an hour episode of aching pain in the chest. He denies pressure jaw pain and arm pain nausea vomiting indigestion. Patient denies any associated shortness of breath. Patient denies leg swelling mom says or history of myocardial infarction. Patient states that his was an old nurse and gave him 325 of aspirin prior to arrival> Pt states he hasnt had chest pain since 2 PM but recorded elevation blood pressures reading this afternoon and his made him come to the ER. On arrival pt is not diaphoretic, he has no complaints and does not appear in distress. BP is found to be elevated, but not critical. - Related Data Home Medications Medication Instructions Recorded Confirmed Pravastatin Sodium [Pravachol] 40 mg PO HS 02/10/17 03/07/17 amLODIPine [Norvasc] 5 mg PO DAILY 02/10/17 03/07/17 Acetaminophen [Tylenol] 325 mg PO Q6H PRN 03/07/17 03/07/17 L.acidoph,Paracasei, B.lactis 1 cap PO DAILY 03/07/17 03/07/17 [Probiotic] Turmeric Root Extract [Turmeric] 500 mg PO DAILY 03/07/17 03/07/17 oxyCODONE HCL [Roxicodone] 5 - 10 mg PO Q6H PRN 03/07/17 03/07/17 Allergies Allergy/AdvReac Type Severity Reaction Status Date / Time No Known Allergies Allergy Verified 01/16/21 20:00 Review of Systems ROS Statement: Those systems with pertinent positive or pertinent negative responses have been documented in the HPI. ROS Other: All systems not noted in ROS Statement are negative. Past Medical History Past Medical History: Cancer, Hyperlipidemia, Sleep Apnea/CPAP/BIPAP Additional Past Medical History / Comment(s): PROTATE CANCER. USES CPAP. History of Any Multi-Drug Resistant Organisms: None Reported Past Surgical History: Back Surgery, Bladder Surgery, Orthopedic Surgery Additional Past Surgical History / Comment(s): LOWER BACK SURGERY. GROWTH ON URETER? hip replacement Past Anesthesia/Blood Transfusion Reactions: No Reported Reaction Past Psychological History: No Psychological Hx Reported Smoking Status: Never smoker Past Alcohol Use History: Occasional Past Drug Use History: None Reported - Past Family History Mother Family Medical History: No Reported History General Exam - General Exam Comments Initial Comments: General: The patient is awake and alert, in no distress, and does not appear acutely ill. Eye: Pupils are equal, round and reactive to light, extra-ocular movements are intact. No nystagmus. There is normal conjunctiva bilaterally. No signs of icterus. Ears, nose, mouth and throat: There are moist mucous membranes and no oral lesions. Neck: The neck is supple, there is no tenderness or JVD. Cardiovascular: There is a regular rate and rhythm. No murmur, rub or gallop is appreciated. Respiratory: Lungs are clear to auscultation, respirations are non-labored, breath sounds are equal. No wheezes, stridor, rales, or rhonchi. Gastrointestinal: Soft, non-distended, non-tender abdomen without masses or organomegaly noted. There is no rebound or guarding present. Musculoskeletal: Normal ROM, no tenderness. Strength 5/5. Sensation intact. Radial and DP pulses equal bilaterally 2+. Neurological: A&O x 3. CN II-XII intact grossly, There are no obvious motor or sensory deficits. Coordination appears grossly intact. Speech is normal. Skin: Skin is warm and dry and no rashes or lesions are noted. Psychiatric: Cooperative, appropriate mood & affect, normal judgment. Limitations: no limitations Course Vital Signs 01/16/21 01/16/21 01/16/21 20:01 21:19 21:47 Temperature 97.8 F Pulse Rate 73 61 63 Respiratory 18 16 16 Rate Blood Pressure 167/72 158/87 169/84 O2 Sat by Pulse 97 96 94 L Oximetry Chest Pain MDM - MDM Patient had chest pain 6+ hours ago. none currently. 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 recommend 2nd troponin he refused, states he will not stay any LONGER. pt troponin drawn > 6 hours after onset of symptoms and is currently asymptomatic. EKG no acute findings. discussedd case wtih attending who is agreeable to discharge with return for symptoms reoccurring/new symptoms. pt is to see pcp tomorrow. Disposition Clinical Impression: Chest discomfort Disposition: HOME SELF-CARE Condition: Good Instructions (If sedation given, give patient instructions): Chest Pain (ED) Additional Instructions: Please use medication as discussed. Please follow-up with family doctor in the next 2 days. Please return to emergency room if the symptoms increase or worsen or for any other concerns. Is patient prescribed a controlled substance at d/c from ED?: No Referrals: Ronnie Guillermo MD [Primary Care Provider] - 1-2 days Time of Disposition: 21:37
[2021-01-16 20:37] LABS: Basophils # (A) 0.1 k/uL (0-0.2); Basophils % (A) 1 %; Eosinophils # (A) 0.4 k/uL (0-0.7); Eosinophils % (A) 6 %; HCT 45.2 % (39.0-53.0); HGB 15.2 gm/dL (13.0-17.5); Lymphocytes # (A) 1.7 k/uL (1.0-4.8); Lymphocytes % (A) 26 %; MCH 31.3 pg (25.0-35.0); MCHC 33.6 g/dL (31.0-37.0); MCV 93.1 fL (80.0-100.0); Monocytes # (A) 0.4 k/uL (0-1.0); Monocytes % (A) 6 %; Neutrophils # (A) 3.8 k/uL (1.3-7.7); Neutrophils % (A) 59 %; Platelet Count 192 k/uL (150-450); RBC 4.86 m/uL (4.30-5.90); RDW 13.6 % (11.5-15.5); WBC 6.5 k/uL (3.8-10.6)
[2021-01-16 20:46] LABS: INR 0.9 (<1.2); Partial Thromboplastin Time 24.7 sec (22.0-30.0); Prothrombin Time 10.2 sec (9.0-12.0)
--- NOTE | 2021-01-16 20:56 | XR ---
EXAMINATION TYPE: XR chest 2V DATE OF EXAM: 01/16/2021 COMPARISON: 01/12/2017 HISTORY: Chest pain TECHNIQUE: 2 views FINDINGS: There is no heart failure nor confluent pneumonic infiltrate. There is left shoulder prosth esis. There are chest leads. Costophrenic angles are clear. IMPRESSION: No active cardiopulmonary disease. Normal heart.
[2021-01-16 20:59] LABS: ALT 28 U/L (4-49); AST 32 U/L (17-59); African American GFR (CKD) >90 (>60 ml/min/1.73 sqM); Albumin 4.2 g/dL (3.5-5.0); Alkaline Phosphatase 110 U/L (38-126); Anion Gap 8 mmol/L; Blood Urea Nitrogen 18 mg/dL (9-20); Calcium 9.1 mg/dL (8.4-10.2); Carbon Dioxide 24 mmol/L (22-30); Chloride 107 mmol/L (98-107); Glucose 110 mg/dL (74-99); Magnesium 1.8 mg/dL (1.6-2.3); Non-African American GFR(CKD) 83 (>60 ml/min/1.73 sqM); Potassium 4.2 mmol/L (3.5-5.1); Sodium 139 mmol/L (137-145); Total Bilirubin 0.4 mg/dL (0.2-1.3); Total Protein 6.8 g/dL (6.3-8.2)
[2021-01-16 21:20] VITALS: RESP 16
[2021-01-16 21:48] VITALS: BP 169/84; PULSE 63
== END 2021-01-16 21:48 | disposition home or self-care (01) ==
LOC: EC 19:54
DX: R07.89 Other chest pain (principal); E78.5 Hyperlipidemia, unspecified; G47.30 Sleep apnea, unspecified
CPT/HCPCS: 36415; 71046; 80053; 83735; 83880; 84484; 85025; 85610; 85730; 93005; 99285

== ENCOUNTER → 2023-06-20 | Outpatient (CLI) | payer MEDICARE ==
--- NOTE | 2023-06-20 16:20 | P.SLEEP ---
History of Present Illness DATE: 06/20/2023 CONSULTATION/NEW PATIENT EVALUATION HISTORY OF PRESENT ILLNESS/SLEEP-WAKE EVALUATION: 83 year old gentleman had been evaluated in the sleep center for obstructive sleep apnea hypopnea syndrome. I know patient for many years. Last time I saw him in August 2019. Patient continued to use his CPAP equipment every night for the whole night. I checked his CPAP unit. The range of the pressure 5-13, average 12.4 cm of water. Usage is 100% of nights, average 10.9 hours per night. Leak is slightly increased at 32 L/m apnea-hypopnea index is 2 times per hour which is perfect. CPAP unit is old, sometimes create noise during the night. SLEEP SCHEDULE: Usually sleep schedule from 8 PM to 7 AM 7 days a week. FALLING ASLEEP: No problems with falling asleep. DURING SLEEP: While using CPAP patient may wake up from sleep only 1-2 times with nocturia No history of hypnogogical hallucinations, sleep paralysis, or cataplexy. DURING THE DAY/WAKE STATE: No significant tiredness and sleepiness during the day. [place] sleepiness scale is 7. Patient may take 1 nap after known. PAST MEDICAL HISTORY: Stroke in 2016, hypertension, prostate see, hyperlipidemia, back problems. 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 MEDICATIONS: Pravastatin 30 mg once a day, allopurinol 300 mg once a day, Norvasc 5 mg once a day. SOCIAL HISTORY: Negative for smoking, alcohol consumption occasional. FAMILY HISTORY: Hypertension, asthma. REVIEW OF SYSTEMS: Awakenings from sleep up to 2 times with nocturia. No fevers. No double vision. No recent chest pain. No shortness of breath. No abdominal pain. No bleeding episodes. No blood in urine. No seizure episodes. PHYSICAL EXAMINATION: GENERAL: A pleasant patient without any distress. VITAL SIGNS: BP 164/77 , HR 91 , RR 16 , weight 233.4 pounds, height 5 foot 7 inches, body mass index 36.4 . HEENT: PERRLA, EOMI. Evaluation of oropharynx showed tongue protrudes midline, low position of soft palate Mallampati 4. NECK: Supple. No JVD. Thyroid is not palpable. 18-3/4 inches in circumference. LUNGS: Clear to percussion and to auscultation. Good air exchange. No wheezing or rhonchi. HEART: S1, S2 regular. No murmurs, gallops or rubs. ABDOMEN: Soft and nontender. Bowel sounds are present. No organomegaly appreciated. EXTREMITIES: No clubbing or cyanosis. 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 Cranial nerves 2 to 7 intact. There is no fasciculation or atrophy noted. No focal deficits observed. ASSESSMENT: 1. Obstructive sleep apnea hypopnea syndrome for many years. Patient continued to use his CPAP equipment every night for the whole night. Normal respiration on CPAP. CPAP unit is using old. 2. Obesity, body mass index 36.4. 3. 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 4. Hyperlipidemia. 5 hypertension. 6 . Status post stroke in 2016. 7. Status post prostatectomy for cancer. 8. Status post left hip replacement. 9 . Status post left shoulder replacement. 10. Status post back fusion. . PLAN: 1. Prescription to replace CPAP unit. 2. Patient will continue to use CPAP equipment every night for the whole night. 3. No driving if feel any sleepiness. Patient is aware of civil and criminal liability for unsafe driving. 4. Sleep hygiene with regular sleep time for at least 7.5-8 hours. 5. Watching losing weight. 6. Follow up visit in 12 months after patient will get new CPAP equipment to evaluate clinical response on treatment, compliance with treatment and make a ny necessary adjustments related to mask fitting pressure and humidification. Thank you very much for referring this patient for consultation. Sincerely, Salvador Aly MD, PhD, FAASM. Diplomat of [place] [employer], Sleep Medicine Board by [place] [employer] [place] [employer] Printed [employer] Boards Router of [facility] [place] Past Medical History Past Medical History: Cancer, Hyperlipidemia, Sleep Apnea/CPAP/BIPAP Additional Past Medical History / Comment(s): PROTATE CANCER. USES CPAP. History of Any Multi-Drug Resistant Organisms: None Reported Past Surgical History: Back Surgery, Bladder Surgery, Orthopedic Surgery Additional Past Surgical History / Comment(s): LOWER BACK SURGERY. GROWTH ON URETER? hip replacement Past Anesthesia/Blood Transfusion Reactions: No Reported Reaction Past Psychological History: No Psychological Hx Reported Smoking Status: Never smoker Past Alcohol Use History: Occasional Past Drug Use History: None Reported - Past Family History Mother Family Medical History: No Reported History Medications and Allergies Home Medications Medication Instructions Recorded Confirmed Type Pravastatin Sodium [Pravachol] 40 mg PO HS 02/10/17 03/07/17 History amLODIPine [Norvasc] 5 mg PO DAILY 02/10/17 03/07/17 History Acetaminophen [Tylenol] 325 mg PO Q6H PRN 03/07/17 03/07/17 History L.acidoph,Paracasei, B.lactis 1 cap PO DAILY 03/07/17 03/07/17 History [Probiotic] Turmeric Root Extract [Turmeric] 500 mg PO DAILY 03/07/17 03/07/17 History oxyCODONE HCL [Roxicodone] 5 - 10 mg PO Q6H PRN 03/07/17 03/07/17 History Allergies Allergy/AdvReac Type Severity Reaction Status Date / Time No Known Allergies Allergy Verified 01/16/21 20:00 Sleep Note - Sleep Note Sleep Note: Temperature: Pulse Rate: Respiratory Rate: Blood Pressure: SpO2: Height: Weight: BMI: Neck Circumference:
== END ==
LOC: 3 N SLEEP 15:06
PROVIDERS: ATTEND Internal Medicine
DX: G47.33 Obstructive sleep apnea (adult) (pediatric) (principal); E66.9 Obesity, unspecified; E78.5 Hyperlipidemia, unspecified; I10 Essential (primary) hypertension; Z98.890 Other specified postprocedural states; Z96.642 Presence of left artificial hip joint; Z96.612 Presence of left artificial shoulder joint; Z85.46 Personal history of malignant neoplasm of prostate; Z68.36 Body mass index [BMI] 36.0-36.9, adult; Z86.73 Personal history of transient ischemic attack (TIA), and cerebral infarction without residual deficits; Z85.828 Personal history of other malignant neoplasm of skin; Z98.1 Arthrodesis status
CPT/HCPCS: 99211

== ENCOUNTER 2024-03-25 23:32 | Inpatient (IN) | payer MEDICARE ==
--- NOTE | 2024-03-25 23:54 | ED ---
Chest Pain HPI - General Chief Complaint: Chest Pain Stated Complaint: chest pain Time Seen by Provider: 03/25/24 23:36 Source: patient Mode of arrival: EMS Limitations: no limitations - History of Present Illness Initial Comments: This is a 83-year-old male to the ER for evaluation he does admit to doing more activity this week and then his normal baseline. Patient states he began with chest pain last night maybe 2 nights ago but tonight he was unable to sleep and restless comes in with chest pain here in the ER. He does admit to a stress test 50 years ago history of high blood pressure and high cholesterol. Chest pain is persistent here in the ER and he feels unwell Complaint: chest pain -: days(s) Pain Location: substernal, left chest Pain Radiation: none Severity: moderate Severity scale (1-10): 6 Quality: tightness, heaviness Consistency: constant Improves With: nothing Worsens With: nothing Anginal Symptoms: sense of impending doom Other Symptoms: palpitations Treatments Prior to Arrival: none - Related Data Home Medications Medication Instructions Recorded Confirmed amLODIPine [Norvasc] 5 mg PO DAILY 02/10/17 03/26/24 Pravastatin Sodium [Pravachol] 80 mg PO DAILY 03/26/24 03/26/24 allopurinoL 300 mg PO DAILY 03/26/24 03/26/24 Allergies Allergy/AdvReac Type Severity Reaction Status Date / Time No Known Allergies Allergy Verified 03/26/24 09:14 Review of Systems ROS Statement: Those systems with pertinent positive or pertinent negative responses have been documented in the HPI. ROS Other: All systems not noted in ROS Statement are negative. EKG Findings - EKG Comments: EKG Findings:: EKG is sinus 77 FL 183 QRS 85 QTc 405 - EKG Results: EKG: interpreted by NARCISA Past Medical History Past Medical History: Cancer, CVA/TIA, Hyperlipidemia, Sleep Apnea/CPAP/BIPAP Additional Past Medical History / Comment(s): PROTATE CANCER. USES CPAP. CVA 2016 History of Any Multi-Drug Resistant Organisms: None Reported Past Surgical History: Back Surgery, Bladder Surgery, Orthopedic Surgery Additional Past Surgical History / Comment(s): LOWER BACK SURGERY. GROWTH ON URETER? hip replacement Past Anesthesia/Blood Transfusion Reactions: No Reported Reaction Past Psychological History: No Psychological Hx Reported Smoking Status: Never smoker Past Alcohol Use History: Occasional Past Drug Use History: None Reported - Past Family History Mother Family Medical History: No Reported History General Exam Limitations: no limitations General appearance: alert, in no apparent distress Head exam: Present: atraumatic, normocephalic, normal inspection Eye exam: Present: normal appearance, PERRL, EOMI. Absent: scleral icterus, conjunctival injection, periorbital swelling ENT exam: Present: normal exam, mucous membranes moist Neck exam: Present: normal inspection. Absent: tenderness, meningismus, lymphadenopathy Respiratory exam: Present: normal lung sounds bilaterally. Absent: respiratory distress, wheezes, rales, rhonchi, stridor Cardiovascular Exam: Present: regular rate, normal rhythm, normal heart sounds. Absent: systolic murmur, diastolic murmur, rubs, gallop, clicks GI/Abdominal exam: Present: soft, normal bowel sounds. Absent: distended, tenderness, guarding, rebound, rigid Extremities exam: Present: normal inspection, full ROM, normal capillary refill. Absent: tenderness, pedal edema, joint swelling, calf tenderness Back exam: Present: normal inspection Neurological exam: Present: alert, oriented X3, CN II-XII intact Psychiatric exam: Present: normal affect, normal mood Skin exam: Present: warm, dry, intact, normal color. Absent: rash Course Vital Signs 03/25/24 03/26/24 03/26/24 23:34 00:41 00:54 Temperature 98.0 F Pulse Rate 80 70 69 Respiratory 18 20 Rate Blood Pressure 146/73 108/61 154/75 O2 Sat by Pulse 93 L 96 Oximetry 03/26/24 03/26/24 00:55 01:00 Temperature Pulse Rate 65 77 Respiratory 20 19 Rate Blood Pressure 133/71 133/71 O2 Sat by Pulse 93 L 94 L Oximetry - Reevaluation(s) Reevaluation #1: 03/26/24 00:14 Records reviewed Reevaluation #2: 03/26/24 00:14 Patient symptoms are persistent with chest pain Reevaluation #3: 03/26/24 00:14 Informed of results questions answered Reevaluation #4: Was pt. sent in by a medical professional or institution (, PA, PAVING INSPECTOR, urgent care, hospital, or [facility]...) When possible be specific @ -no Did you speak to anyone other than the patient for history (EMS, parent, family, police, friend...)? What history was obtained from this source @ -no Did you review nursing and triage notes (agree or disagree)? Why? @ -agree Are old charts reviewed (outside hosp., previous admission, EMS record, old EKG, old radiological studies, urgent care reports/EKG's, [facility] records)? Report findings @ -yes Differential Diagnosis (chest pain, altered mental status, abdominal pain women, abdominal pain men, vaginal bleeding, weakness, fever, dyspnea, syncope, headache, dizziness, GI bleed, back pain, seizure, CVA, palpatations, mental health, musculoskeletal)? @ -prior EKG interpreted by me (3pts min.). @ -yes X-rays interpreted by me (1pt min.). @ -yes negative for acute disease CT interpreted by me (1pt min.). @ -no U/S interpreted by me (1pt. min.). @ -no What testing was considered but not performed or refused? (CT, X-rays, U/S, labs)? Why? @ -none What meds were considered but not given or refused? Why? @ -none Did you discuss the management of the patient with other professionals (professionals i.e. DrSarah, PA, PAVING INSPECTOR, lab, RT, psych nurse, psychiatric social worker supervisor, cake stripper, teacher, second officer, case management assistant)? Give summary @ -no Was smoking cessation discussed for >3mins.? @ -no Was critical care preformed (if so, how long)? @ -yes31 Were there social determinants of health that impacted care today? How? (Homelessness, low income, unemployed, alcoholism, drug addiction, transportation, low edu. Level, literacy, decrease access to med. care, [facility], rehab)? @ -none Was there de-escalation of care discussed even if they declined (Discuss DNR or withdrawal of care, Hospice)? DNR status @ -no What co-morbidities impacted this encounter? (DM, HTN, Smoking, COPD, CAD, Cancer, CVA, ARF, Chemo, Hep., AIDS, mental health diagnosis, sleep apnea, morbid obesity)? @ -none Was patient admitted / discharged? Hospital course, mention meds given and route, prescriptions, significant lab abnormalities, going to OR and other pertinent info. @ - 83 Female to ER for evaluation of chest pain for a few days through the weekend and worse tonight. Patient has initial EKG showing T wave inversion second EKG does show ST elevation inferior leads Noted Undiagnosed new problem with uncertain prognosis? @ -no Drug Therapy requiring intensive monitoring for toxicity (Heparin, Nitro, Insulin, Cardizem)? @ -no Were any procedures done? @ -no Diagnosis/symptom? @ -ACS Acute, or Chronic, or Acute on Chronic? @ -Acute Uncomplicated (without systemic symptoms) or Complicated (systemic symptoms)? @ -Complicated Side effects of treatment? @ -no Exacerbation, Progression, or Severe Exacerbation? @ -exacerbation Poses a threat to life or bodily function? How? (Chest pain, [place], [place], pneumonia, PE, COPD, DKA, ARF, appy, cholecystitis, CVA, Diverticulitis, Homicidal, Suicidal, threat to staff... and all critical care pts) @ -yes ACS ACS Reevaluation #5: Differential Chest Pain: Stable Angina, Unstable Angina, STEMI, NSTEMI Aortic Dissection, Pneumothorax, Musculoskeletal, Esophageal Spasm GERD, Cholecystitis, Pancreatitis, Zoster, this is not meant to be an all-inclusive list. - Consultations Consultation #1: Cardiology aware of patient EKG changes and change in EKG Consultation #2: Sound who agrees to admit this patient Chest Pain MDM - MDM 83 Female to ER for evaluation of chest pain for a few days through the weekend and worse tonight. Patient has initial EKG showing T wave inversion second EKG does show ST elevation inferior leads Critical Care Time Critical Care Time: Yes Total Critical Care Time: 31 Disposition Clinical Impression: Chest pain, ACS (acute coronary syndrome) Disposition: ADMITTED IP TO THIS HOSP Condition: Serious Is patient prescribed a controlled substance at d/c from ED?: No Time of Disposition: 00:20
[2024-03-26 00:32] LABS: Basophils # (A) 0.1 k/uL (0-0.2); Basophils % (A) 0 %; Eosinophils # (A) 0.1 k/uL (0-0.7); Eosinophils % (A) 1 %; HCT 47.1 % (39.0-53.0); Lymphocytes # (A) 2.2 k/uL (1.0-4.8); Lymphocytes % (A) 18 %; MCH 32.6 pg (25.0-35.0); MCHC 33.9 g/dL (31.0-37.0); MCV 96.1 fL (80.0-100.0); Mean Platelet Volume 8.6; Monocytes # (A) 0.9 k/uL (0-1.0); Monocytes % (A) 8 %; Neutrophils # (A) 8.5 k/uL (1.3-7.7); Neutrophils % (A) 71 %; Platelet Count 185 k/uL (150-450); WBC 11.9 k/uL (3.8-10.6)
[2024-03-26] MEDS: ASPIRIN 81 MG PO STA (00:33)
[2024-03-26] MEDS: NITROGLYCERIN SL TABS 0.4 MG TAB SUBLINGUAL PRN (00:33)
[2024-03-26] MEDS: HEPARIN SODIUM 1,000 UN/ML (10ML VL) IV ONE ×2 (00:34→23:42)
[2024-03-26 00:36] LABS: ALT 52 U/L (4-49); African American GFR (CKD) >90 (>60 ml/min/1.73 sqM); Albumin 4.4 g/dL (3.5-5.0); Anion Gap 9 mmol/L; Blood Urea Nitrogen 19 mg/dL (9-20); Calcium 9.5 mg/dL (8.4-10.2); Carbon Dioxide 24 mmol/L (22-30); Chloride 103 mmol/L (98-107); Glucose 120 mg/dL (74-99); Lipase 33 U/L (23-300); Non-African American GFR(CKD) 81 (>60 ml/min/1.73 sqM); Sodium 136 mmol/L (137-145); Total Bilirubin 1.2 mg/dL (0.2-1.3); Total Protein 7.3 g/dL (6.3-8.2)
[2024-03-26 00:37] LABS: AST 47 U/L (17-59); Alkaline Phosphatase 84 U/L (38-126); Magnesium 1.8 mg/dL (1.6-2.3); Potassium 4.5 mmol/L (3.5-5.1)
[2024-03-26] MEDS: HEPARIN SOD,PORK IN 0.45% NACL 25,000 UNIT in 0.45% NACL 1 250ML.BAG IV SCH ×2 (00:37→23:43)
[2024-03-26 00:44] LABS: Partial Thromboplastin Time 25.5 sec (22.0-30.0); Prothrombin Time 11.3 sec (10.0-12.5)
[2024-03-26 00:45] LABS: NT-Pro-B-Type Natriuretic Pept 118 pg/mL
[2024-03-26] MEDS: HEPARIN SODIUM 1,000 UN/ML (10ML VL) IVP STA (00:49)
--- NOTE | 2024-03-26 00:56 | XR ---
EXAM: XR Chest, 1 View CLINICAL HISTORY: ITS.REASON XR Reason: chest pain TECHNIQUE: Frontal view of the chest. COMPARISON: 01/12/17 FINDINGS: Lungs: Question of mild left basilar opacities. Right lung is clear. Pleural space: No significant pleural effusion. No pneumothorax. Heart: Unremarkable. No cardiomegaly or pulmonary vascular congestion. Bones/joints: Reverse left shoulder arthroplasty. No acute osseous findings. IMPRESSION: Question of mild left basilar opacities, which could represent atelectasis more likely than infiltrate. Correlate clinically.
--- NOTE | 2024-03-26 01:16 | P.CRDCN ---
History of Present Illness History of present illness: HISTORY OF PRESENTING ILLNESS This is a pleasant 83-year-old with past medical history significant for prior stroke, hyperlipidemia, obstructive sleep apnea, obesity and mild to moderate alcohol use who presents secondary chest pain over the last 3 days. He states he was somewhat overdoing over the weekend in terms of having a republican with his family and he and his son believe he was overly active. He also drinks somewhat more alcohol than normal and usually drinks 6 ounces of hard alcohol a day. Since approximately Sunday to Sunday he has been having chest pain which feels dull and has been fairly constant. It has been getting worse and therefore presented to the emergency department. He denies any associated shortness breath however did have some nausea and some diaphoresis, felt somewhat hot like he had a fever at one point.initial EKG showed normal sinus rhythm, normal axis with T-wave inversions lead 3 and aVF however repeat EKG showedST elevation II, III and aVF. he currently rates his pain at a 5 out of 10. Does not smoke however does drink alcohol and no illicit drugs. Does have family history of his father dying of an his VT in his 80s. REVIEW OF SYSTEMS At the time of my exam: CONSTITUTIONAL: Denies fever or chills. CARDIOVASCULAR: +chest pain, no shortness of breath, orthopnea, PND or palpitations. RESPIRATORY: Denies cough. GASTROINTESTINAL: Denies abdominal pain, diarrhea, constipation, nausea or vomiting. MUSCULOSKELETAL: Denies myalgias. NEUROLOGIC: Denies numbness, tingling or weakness. ENDOCRINE: Denies fatigue, weight change, polydipsia or polyurina. GENITOURINARY: Denies burning, hematuria or urgency with micturation. HEMATOLOGIC: Denies history of anemia or bleeding. PHYSICAL EXAMINATION Vital signs reviewed. CONSTITUTIONAL: No apparent distress. HEENT: Head is normocephalic. Pupils are equal, round. Sclerae anicteric. Mucous membranes of the mouth are moist. No JVD. No carotid bruit. CHEST EXAMINATION: Lungs are clear to auscultation. No chest wall tenderness is noted on palpation or with deep breathing. HEART EXAMINATION: Regular rate and rhythm. S1, S2 heard. No murmurs, gallops or rub. ABDOMEN: Soft, nontender. Positive bowel sounds. EXTREMITIES: 2+ peripheral pulses, no lower extremity edema and no calf tender ness. NEUROLOGIC EXAMINATION: Patient is awake, alert and oriented x3. ASSESSMENT Evolving inferior STEMI Hypertension Prior history of stroke Hyperlipidemia Alcohol abuse Family history of father with VT in his 80's PLAN patient's initial EKG did not show ST elevation however evolving STEMI with repeat EKG showing inferior ST elevations. We therefore discussed heart catheterization as patient is agreeable. Aspirin and heparin drip. Check 2-D echo. Further recommendations to follow. Past Medical History Past Medical History: Cancer, CVA/TIA, Hyperlipidemia, Sleep Apnea/CPAP/BIPAP Additional Past Medical History / Comment(s): PROTATE CANCER. USES CPAP. CVA 2015 History of Any Multi-Drug Resistant Organisms: None Reported Past Surgical History: Back Surgery, Bladder Surgery, Orthopedic Surgery Additional Past Surgical History / Comment(s): LOWER BACK SURGERY. GROWTH ON URETER? hip replacement Past Anesthesia/Blood Transfusion Reactions: No Reported Reaction Past Psychological History: No Psychological Hx Reported Smoking Status: Never smoker Past Alcohol Use History: Occasional Past Drug Use History: None Reported - Past Family History Mother Family Medical History: No Reported History Medications and Allergies Home Medications Medication Instructions Recorded Confirmed Type Pravastatin Sodium [Pravachol] 40 mg PO HS 02/10/17 03/07/17 History amLODIPine [Norvasc] 5 mg PO DAILY 02/10/17 03/07/17 History Acetaminophen [Tylenol] 325 mg PO Q6H PRN 03/07/17 03/07/17 History L.acidoph,Paracasei, B.lactis 1 cap PO DAILY 03/07/17 03/07/17 History [Probiotic] Turmeric Root Extract [Turmeric] 500 mg PO DAILY 03/07/17 03/07/17 History oxyCODONE HCL [Roxicodone] 5 - 10 mg PO Q6H PRN 03/07/17 03/07/17 History Allergies Allergy/AdvReac Type Severity Reaction Status Date / Time No Known Allergies Allergy Verified 03/25/24 23:42 Physical Exam Vitals: Vital Signs Temp Pulse Resp BP Pulse Ox 03/26/24 01:00 75 19 124/84 93 L 03/26/24 00:55 65 20 133/71 93 L 03/26/24 00:41 70 20 108/61 96 03/25/24 23:34 98.0 F 80 18 146/73 93 L Intake and Output 03/25/24 03/25/24 03/26/24 14:59 22:59 06:59 Other: Weight 104.326 kg Results 03/25/24 23:40 03/25/24 23:40 Cardiac Enzymes 03/25/24 Range/Units 23:40 AST 47 (17-59) U/L Coagulation 03/25/24 Range/Units 23:40 PT 11.3 (10.0-12.5) sec APTT 25.5 (22.0-30.0) sec CBC 03/25/24 Range/Units 23:40 WBC 11.9 H (3.8-10.6) k/uL RBC 4.90 (4.30-5.90) m/uL Hgb 16.0 (13.0-17.5) gm/dL Hct 47.1 (39.0-53.0) % Plt Count 185 (150-450) k/uL Comprehensive Metabolic Panel 03/25/24 Range/Units 23:40 Sodium 136 L (137-145) mmol/L Potassium 4.5 (3.5-5.1) mmol/L Chloride 103 (98-107) mmol/L Carbon Dioxide 24 (22-30) mmol/L BUN 19 (9-20) mg/dL Creatinine 0.85 (0.66-1.25) mg/dL Glucose 120 H (74-99) mg/dL Calcium 9.5 (8.4-10.2) mg/dL AST 47 (17-59) U/L ALT 52 H (4-49) U/L Alkaline Phosphatase 84 (38-126) U/L Total Protein 7.3 (6.3-8.2) g/dL Albumin 4.4 (3.5-5.0) g/dL Current Medications Generic Name Dose Route Start Last Admin Trade Name Freq PRN Reason Stop Dose Admin Aspirin 325 mg 03/26/24 12:00 Aspirin 325 Mg Tab PO DAILY MAX Heparin Sodium/Sodium Chloride 250 mls @ 10 mls/hr 03/26/24 00:15 03/26/24 00:37 25,000 unit/ Sodium Chloride IV 9.585 units/kg/hr .Q24H MAX 10 mls/hr Administration Protocol 9.585 UNITS/KG/HR Nitroglycerin 0.4 mg 03/26/24 00:11 03/26/24 00:51 Nitroglycerin Sl Tabs 0.4 Mg Tab SUBLINGUAL 0.4 mg Q5M PRN Administration Chest Pain Intake and Output 03/25/24 03/25/24 03/26/24 14:59 22:59 06:59 Other: Weight 104.326 kg Patient Weight 03/26/24 06:59 Weight 104.326 kg 03/25/24 23:40 03/25/24 23:40
[2024-03-26] MEDS ORDERED: HEPARIN SODIUM 1,000 UN/ML (10ML VL) ONE (01:20)
[2024-03-26] MEDS ORDERED: fentaNYL (PF) 50 MCG/ML 2 ML AMP ONE (01:20)
[2024-03-26] MEDS ORDERED: VERAPAMIL 2.5 MG/ML 2 ML AMP ONE (01:22)
[2024-03-26] MEDS ORDERED: LIDOCAINE 1% INJ 10MG/ML (20 ML MDV) ONE (01:22)
[2024-03-26] MEDS: LIDOCAINE 1% INJ 10MG/ML (20 ML MDV) SQ ONE (01:23)
[2024-03-26] MEDS: fentaNYL (PF) 50 MCG/ML 2 ML AMP IVP ONE (01:24)
[2024-03-26] MEDS: VERAPAMIL SYRINGE (5 MG/10 ML) INTRAARTER ONE (01:24)
[2024-03-26] MEDS ORDERED: TICAGRELOR 90 MG TAB ONE (01:30)
--- NOTE | 2024-03-26 01:55 | P.CARDCATH ---
Description of Procedure: PROCEDURES PERFORMED: Left heart catheterization, bilateral coronary angiography, ultrasound guided arterial access, left ventriculogram INDICATION: STEMI CONSENT:I have discussed the risks, benefits and alternative therapies for the above-mentioned procedure and for both sedation/analgesia as well as necessary blood product administration, if indicated, as they pertain to this patient. The patient has indicated understanding and acceptance of the risks and procedures discussed. PROCEDURE: After the risks, benefits and alternatives of the above mentioned procedure explained in detail with the patient, informed consent was obtained. Patient was taken to the catheterization lab and prepped and draped in usual fashion. Ultrasound guidance was used to assess for arterial access. 1% lidocaine was used to anesthetize the right radial artery. A 6-Guine[place] sheath was placed in the right radial artery using modified Seldinger technique and ultrasound guidance. Left coronary angiography was performed with a 6-[place]ine[place] AL 0.75 catheter and right coronary angiography was performed with a 6-[place] FL 3.5 catheter in various views. A 5-[place] pigtail catheter was inserted into the left ventricle and pressure measurements were obtained. Left ventriculogram was performed in the SUGGS projection with a power injection. The right radial sheath was removed and a TR band was placed with hemostasis achieved. The patient tolerated the procedure well. Patient was transported back to the post catheterization holding area in stable condition. Conscious Sedation: Patient was monitored under the direct supervision of myself for conscious sedation using Versed and fentanyl for a total duration of 20 minutes HEMODYNAMICS: aorta: 158/82 LV: 165/5, LVEDP 10 SELECTIVE CORONARY ARTERIOGRAPHY: LEFT MAIN: The left main is a large caliber vessel which bifurcates into the LAD and circumflex. There is no significant stenosis. LEFT ANTERIOR DESCENDING CORONARY ARTERY: LAD is a large caliber vessel which wraps around to the apex. There is mild proximal LAD 30% stenosis and otherwise mild luminal irregularities.. LEFT CIRCUMFLEX CORONARY ARTERY: Left circumflex is a moderate caliber vessel with mild luminal irregularities. RIGHT CORONARY ARTERY: The right coronary artery is a large caliber vessel which gives off a PDA and PLV branch and is the dominant vessel. There is a mid RCA 30% stenosis and otherwise mild luminal irregularities. Left ventriculogram: Left ventricular ejection fraction 60% without wall motion abnormalities. No significant mitral regurgitation FINAL IMPRESSION: 1. Mild CAD as described above including 30% proximal LAD and 30% mid RCA stenosis. 2. Normal left sided filling pressures 3. Normal left ventricular ejection fraction 60% PLAN: 1. Aggressive risk factor modification per most recent ACC/AHA guidelines. 2. Patient with transient ST elevations which may be related to vasospasm, however EKG changes have resolved and patient still having atypical chest pain somewhat worse with laying flat however EKG not typical of pericarditis. Continue to trend troponins and if troponins become elevated likely treat as vasospasm with anti-spasmodics.
[2024-03-26] MEDS: SODIUM CHLORIDE 0.9% 1,000 ML IV ONE (02:14)
[2024-03-26] MEDS: NITROGLYCERIN-D5W PMX 50 MG in DEXTROSE/WATER 1 250ML.BAG IV ONE (02:15)
[2024-03-26 02:23] LABS: Glucose,Whole Blood 139 mg/dL (70-110)
[2024-03-26] MEDS: NITROGLYCERIN-D5W PMX 50 MG in DEXTROSE/WATER 1 250ML.BAG IV SCH (02:45)
[2024-03-26 04:31] LABS: Mean Platelet Volume 8.6; Platelet Count 187 k/uL (150-450)
[2024-03-26] MEDS: MORPHINE SULFATE 4 MG/ML SYRINGE IVP PRN (08:47)
[2024-03-26] MEDS ORDERED: LORazepam 0.5 MG TAB PO PRN (10:17)
[2024-03-26] MEDS ORDERED: LORazepam 2 MG/ML INJ IV PRN ×3 (10:17)
[2024-03-26] MEDS: ASPIRIN 325 MG TAB PO SCH (10:39)
[2024-03-26] MEDS: LORazepam 1 MG TAB PO PRN (10:39)
[2024-03-26] MEDS: FOLIC ACID 1 MG TAB PO SCH (10:39)
--- NOTE | 2024-03-26 10:49 | P.PN ---
Subjective Progress Note Date: 03/26/24 The patient is a pleasant 84-year-old gentleman who was admitted to the hospital with chest discomfort and underwent a heart catheterization revealed no evidence of obstructive coronary artery disease. March 26, 2024 The patient was seen this morning with he continues to have chest discomfort but the discomfort appears to be pleuritic in nature. I advised to have D-dimer. The echo still pending. No shortness of breath. He has been maintaining normal sinus mechanism. The examination is remarkable for regular rhythm with a systolic murmur and distant heart sounds and clear breathing sounds bilaterally and no edema was noted Assessment Chest discomfort appears to be pleuritic in nature Possible component of coronary vasospasm Possible pulmonary embolism as well Multiple comorbid conditions Plan Try to wean the patient from nitro Consider nitro orally Rule out PE by obtaining D-dimer Follow-up on the echocardiogram Objective - Vital Signs Vital signs: Vital Signs Temp 98.8 F 03/26/24 07:58 Pulse 70 03/26/24 10:15 Resp 24 03/26/24 10:15 BP 112/67 03/26/24 10:15 Pulse Ox 95 03/26/24 10:00 FiO2 Intake & Output 03/25/24 03/26/24 03/26/24 18:59 06:59 18:59 Intake Total 79.65 82 Output Total 0 500 Balance 79.65 -418 Weight 104.326 kg Intake: IV 75 Intake, IV Titration 4.65 32 Amount Nitroglycerin-D5w Pmx 50 4.65 32 mg In Dextrose/Water 1 250ml.bag @ 5 MCG/MIN 1.5 mls/hr IV .Q24H [facility] Rx#: [id number] Oral 50 Output: Urine 0 500 Other: Voiding Method Urinal # Voids 0 0 - Labs CBC & Chem 7: 03/26/24 03:50 03/25/24 23:40 Labs: Abnormal Lab Results - Last 24 Hours (Table) 03/25/24 03/25/24 03/26/24 Range/Units 23:40 23:40 02:21 WBC 11.9 H (3.8-10.6) k/uL Neutrophils # 8.5 H (1.3-7.7) k/uL Sodium 136 L (137-145) mmol/L Glucose 120 H (74-99) mg/dL POC Glucose (mg/dL) 139 H (70-110) mg/dL ALT 52 H (4-49) U/L Troponin I (0.000-0.034) ng/mL 03/26/24 03/26/24 Range/Units 03:46 05:52 WBC (3.8-10.6) k/uL Neutrophils # (1.3-7.7) k/uL Sodium (137-145) mmol/L Glucose (74-99) mg/dL POC Glucose (mg/dL) (70-110) mg/dL ALT (4-49) U/L Troponin I 0.044 H* 0.050 H* (0.000-0.034) ng/mL
[2024-03-26] MEDS: THIAMINE 100 MG/ML 2 ML VIAL IM STA (11:06)
--- NOTE | 2024-03-26 11:35 | CA ---
Transthoracic Echo Report Name: Bonifacio Reed Age: 83 Gender: M : 1940 Exam Date: 03/26/2024 08:13 Exam Location: [place] [facility] Ht (in): 68 Wt (lb): 230 Ordering Physician: Yann Velez DO ([id number]) Attending/Referring Phys: Restaurant Host Nicky Cyr RDCS Procedure CPT: Indications: re: LV function Cardiac Hx: Technical Quality: Very technically difficult study Contrast 1: Total Dose (mL): Contrast 2: Total Dose (mL): MEASUREMENTS (Male / Female) Normal Values 2D ECHO LV Diastolic Diameter PLAX 5.1 cm 4.2 - 5.9 / 3.9 - 5.3 cm LV Systolic Diameter PLAX 3.4 cm IVS Diastolic Thickness 1.4 cm 0.6 - 1.0 / 0.6 - 0.9 cm LVPW Diastolic Thickness 1.4 cm 0.6 - 1.0 / 0.6 - 0.9 cm LV Relative Wall Thickness 0.5 LVOT Diameter 2.4 cm Ascending Aorta Diameter 3.7 cm FINDINGS Left Ventricle Left ventricular ejection fraction is estimated at 55-60 %. Moderately increased septal wall thickness. Right Ventricle Right ventricle not well visualized. Right Atrium Right atrium not well visualized. Left Atrium Left atrium not well visualized. Mitral Valve Mitral valve not well visualized. Aortic Valve Aortic valve not well visualized. Tricuspid Valve Tricuspid valve not well visualized. Pulmonic Valve Pulmonic valve not well visualized. Pericardium No pericardial effusion. Aorta Aortic annulus normal. CONCLUSIONS . Normal LV function Technically suboptimal study because of noncooperative patient Previewed by: Dr. Jose L Sivla MD (Electronically Signed) Final Date: 26 March 2024 11:35
[2024-03-26] MEDS: PANTOPRAZOLE 40 MG/10 ML VIAL IVP SCH (14:18)
[2024-03-26] MEDS: LORazepam 2 MG/ML INJ IV PRN (14:19)
--- NOTE | 2024-03-26 15:50 | P.HPIM ---
History of Present Illness H&P Date: 03/26/24 Chief Complaint: Chest discomfort This is a pleasant 83-year-old gentleman with past medical history significant for prostate cancer status post prostatectomy, hyperlipidemia, CVA 2016, daily alcohol use, morbid obesity, obstructive sleep apnea uses CPAP and multiple other medical issues presented to the ER with constant, dull chest pain since the weekend at family constitution party celebrating the boat races, accompanied by diaphoresis, nausea, no emesis and shortness of breath. Initial troponin negative. Placed on heparin drip and received aspirin. Chest pain continued .evaluated by cardiology, EKGs reviewed-evolving inferior STEMI noted with repeat EKG. Patient was taken to the Outdoor Recreation Specialist. Underwent cardiac catheterization reporting mild CAD including 30% proximal LAD and 30% mid RCA stenosis, normal left-sided filling pressures normal LV function with EF 55 to 60%. Tolerated procedure well. This morning reported some chest discomfort, denies shortness of breath .D-dimer negative. Electrolytes, renal function within normal limits. Telemetry sinus rhythm. Review of Systems ROS Statement: Those systems with pertinent positive or pertinent negative responses have been documented in the HPI. ROS Other: All systems not noted in ROS Statement are negative. Past Medical History Past Medical History: Cancer, CVA/TIA, Hyperlipidemia, Sleep Apnea/CPAP/BIPAP Additional Past Medical History / Comment(s): PROTATE CANCER. USES CPAP. CVA 2015 History of Any Multi-Drug Resistant Organisms: None Reported Past Surgical History: Back Surgery, Bladder Surgery, Orthopedic Surgery Additional Past Surgical History / Comment(s): LOWER BACK SURGERY. GROWTH ON URETER? hip replacement Past Anesthesia/Blood Transfusion Reactions: No Reported Reaction Past Psychological History: No Psychological Hx Reported Smoking Status: Never smoker Past Alcohol Use History: Occasional Past Drug Use History: None Reported - Past Family History Mother Family Medical History: No Reported History Medications and Allergies Home Medications Medication Instructions Recorded Confirmed Type amLODIPine [Norvasc] 5 mg PO DAILY 02/10/17 03/26/24 History Pravastatin Sodium [Pravachol] 80 mg PO DAILY 03/26/24 03/26/24 History allopurinoL 300 mg PO DAILY 03/26/24 03/26/24 History Allergies Allergy/AdvReac Type Severity Reaction Status Date / Time No Known Allergies Allergy Verified 03/26/24 09:14 Physical Exam Vitals: Vital Signs Temp Pulse Pulse Resp BP BP Pulse Ox 03/26/24 08:45 76 21 145/73 95 03/26/24 08:30 78 20 131/68 93 L 03/26/24 08:25 95 03/26/24 08:15 76 19 114/62 95 03/26/24 08:00 69 18 117/66 95 03/26/24 07:58 98.8 F 03/26/24 07:45 71 22 128/68 93 L 03/26/24 07:30 73 17 145/72 93 L 03/26/24 07:15 71 21 133/68 93 L 03/26/24 07:00 74 21 132/66 93 L 03/26/24 06:45 71 23 135/70 93 L 03/26/24 06:30 71 27 H 129/68 95 03/26/24 06:15 68 20 148/68 95 03/26/24 06:00 70 23 124/62 96 03/26/24 05:45 73 19 127/62 88 L 03/26/24 05:30 69 21 139/61 90 L 03/26/24 05:15 74 21 132/64 88 L 03/26/24 05:00 69 26 H 143/67 92 L 03/26/24 04:45 69 15 143/67 92 L 03/26/24 04:30 65 18 151/66 91 L 03/26/24 04:15 63 19 134/63 91 L 03/26/24 04:00 65 17 129/65 93 L 03/26/24 03:45 62 18 124/61 91 L 03/26/24 03:30 65 16 130/63 93 L 03/26/24 03:00 70 11 L 122/62 94 L 03/26/24 02:40 70 29 H 132/88 95 03/26/24 02:36 97.8 F 70 18 132/88 93 L 03/26/24 01:00 77 19 133/71 94 L 03/26/24 00:55 65 20 133/71 93 L 03/26/24 00:54 69 154/75 03/26/24 00:41 70 20 108/61 96 03/25/24 23:34 98.0 F 80 18 146/73 93 L Intake and Output 03/25/24 03/26/24 03/26/24 22:59 06:59 14:59 Intake Total 79.65 0 Output Total 0 Balance 79.65 0 Intake: IV 75 Intake, IV Titration 4.65 Amount Nitroglycerin-D5w Pmx 50 4.65 mg In Dextrose/Water 1 250ml.bag @ 5 MCG/MIN 1.5 mls/hr IV .Q24H [facility] Rx#: [id number] Oral 0 Output: Urine 0 Other: Voiding Method Urinal # Voids 0 0 Weight 104.326 kg PHYSICAL EXAM: VITAL SIGNS: [As above] GENERAL: Alert and oriented x 3, sitting up in bed, no acute distress HEENT: Normocephalic, atraumatic conjunctivae normal. eyes normal. NECK: Supple, no JVD. No thyroid enlargement. No LNs CARDIOVASCULAR: S1, S2 regular. Systolic murmur. RESPIRATION: Unlabored, equal air entry, clear to auscultation. ABDOMEN: Obese, soft, nondistended, nontender. No guarding. no masses palpable. No ascites, No hepatosplenomegaly.Bowel sounds heard. LEGS: No edema. no swelling NERVOUS SYSTEM: Cranial N 2-12 grossly normal. No focal deficits. Strength and sensation grossly intact.. Skin: Warm and dry, no rash Results CBC & Chem 7: 03/26/24 03:50 03/25/24 23:40 Labs: Abnormal Lab Results - Last 24 Hours (Table) 03/25/24 03/25/24 03/26/24 Range/Units 23:40 23:40 02:21 WBC 11.9 H (3.8-10.6) k/uL Neutrophils # 8.5 H (1.3-7.7) k/uL Sodium 136 L (137-145) mmol/L Glucose 120 H (74-99) mg/dL POC Glucose (mg/dL) 139 H (70-110) mg/dL ALT 52 H (4-49) U/L Troponin I (0.000-0.034) ng/mL 03/26/24 03/26/24 Range/Units 03:46 05:52 WBC (3.8-10.6) k/uL Neutrophils # (1.3-7.7) k/uL Sodium (137-145) mmol/L Glucose (74-99) mg/dL POC Glucose (mg/dL) (70-110) mg/dL ALT (4-49) U/L Troponin I 0.044 H* 0.050 H* (0.000-0.034) ng/mL Assessment and Plan Assessment: Acute inferior STEMI, status post cardiac cath., Mild CAD -30% proximal LAD and 30% mid RCA stenosis, normal LV function, History of CVA 2015 Alcohol use, daily, Hypertension Hyperlipidemia Obstructive sleep apnea, uses CPAP Morbid obesity, BMI 35 Prostate cancer history of prostatectomy Plan: Continue on current medication resume ,monitoring and symptomatic treatment. Weaning of nitroglycerin drip currently in progress as per cardiology. CIWA protocol initiated. PPI ordered for GI prophylaxis. Prognos is guarded given multiple complex medical issues. The impression and plan of care has been dictated as directed. : I performed a history and examination of this patient, discussed the same with the dictator. I agree with the dictator's note ,documented as a scribe. Any additional findings or plans will be noted.
[2024-03-26] MEDS ORDERED: HEPARIN SODIUM 1,000 UN/ML (10ML VL) IV PRN (22:39)
[2024-03-26 23:34] LABS: INR 1.1 (<1.2); Partial Thromboplastin Time 30.1 sec (22.0-30.0); Prothrombin Time 11.5 sec (10.0-12.5)
[2024-03-27 00:24] LABS: ALT 33 U/L (4-49); AST 31 U/L (17-59); African American GFR (CKD) 87 (>60 ml/min/1.73 sqM); Albumin 3.8 g/dL (3.5-5.0); Alkaline Phosphatase 70 U/L (38-126); Anion Gap 8 mmol/L; Blood Urea Nitrogen 22 mg/dL (9-20); Calcium 8.7 mg/dL (8.4-10.2); Carbon Dioxide 21 mmol/L (22-30); Chloride 104 mmol/L (98-107); Glucose 118 mg/dL (74-99); Non-African American GFR(CKD) 76 (>60 ml/min/1.73 sqM); Phosphorus 3.1 mg/dL (2.5-4.5); Potassium 4.3 mmol/L (3.5-5.1); Sodium 133 mmol/L (137-145); Total Bilirubin 1.1 mg/dL (0.2-1.3); Total Protein 6.5 g/dL (6.3-8.2)
[2024-03-27] MEDS: MAGNESIUM SULFATE-D5W PMX 1 GM in DEXTROSE/WATER 1 100ML.BAG IVPB SCH (06:05)
[2024-03-27 06:47] LABS: Mean Platelet Volume 8.5; Platelet Count 169 k/uL (150-450)
--- NOTE | 2024-03-27 08:21 | P.PN ---
Subjective Progress Note Date: 03/27/24 The patient is a pleasant 84-year-old gentleman who was admitted to the hospital with chest discomfort and underwent a heart catheterization revealed no evidence of obstructive coronary artery disease. March 26, 2024 The patient was seen this morning with he continues to have chest discomfort but the discomfort appears to be pleuritic in nature. I advised to have D-dimer. The echo still pending. No shortness of breath. He has been maintaining normal sinus mechanism. The examination is remarkable for regular rhythm with a systolic murmur and distant heart sounds and clear breathing sounds bilaterally and no edema was noted March 27, 2024 The patient was seen and evaluated this morning. He is asymptomatic and hemodynamically stable but he went into A-fib yesterday and currently is in sinus mechanism. I am going to start patient on small dose of beta-melinda with metoprolol and also start the patient on oral anticoagulation. The patient can be discharged home in the next 12 to 24 hours with the echo showed normal LV systolic function. The examination is remarkable for regular rhythm with clear breathing sounds bilaterally and no edema was noted. Assessment Chest discomfort appears to be pleuritic in nature Possible component of coronary vasospasm Possible pulmonary embolism as well Paroxysmal atrial fibrillation Multiple comorbid conditions Plan Continue current medical regimen Add beta-melinda and oral anticoagulation Possible discharge in next 12 to 24 hours Objective - Vital Signs Vital signs: Vital Signs Temp 98.2 F 03/27/24 04:00 Pulse 75 03/27/24 07:00 Resp 16 03/27/24 07:00 BP 125/66 03/27/24 07:00 Pulse Ox 92 L 03/27/24 07:00 FiO2 Intake & Output 03/26/24 03/27/24 03/27/24 18:59 06:59 18:59 Intake Total 264.58 220 Output Total 500 775 Balance -235.42 -555 Weight 106.7 kg Intake: Intake, IV Titration 124.58 70 Amount Heparin Sod,Pork in 0.45% 70 NaCl 25,000 unit In 0.45 % NaCl 1 250ml.bag @ 9. 585 UNITS/KG/HR 10 mls/hr IV .Q24H [facility] Rx#: [id number] Nitroglycerin-D5w Pmx 50 80 mg In Dextrose/Water 1 250ml.bag @ 0 mls/hr IV . [facility] Rx#: [id number] Nitroglycerin-D5w Pmx 50 44.58 mg In Dextrose/Water 1 250ml.bag @ 5 MCG/MIN 1.5 mls/hr IV .Q24H [facility] Rx#: [id number] Oral 140 150 Output: Urine 500 775 Other: Voiding Method Toilet # Voids 0 1 - Labs CBC & Chem 7: 03/27/24 05:50 03/26/24 22:52 Labs: Abnormal Lab Results - Last 24 Hours (Table) 03/26/24 03/26/24 03/26/24 Range/Units 03:50 22:52 22:52 ESR 24 H (0-20) mm/Hr APTT 30.1 H (22.0-30.0) sec Sodium 133 L (137-145) mmol/L Carbon Dioxide 21 L (22-30) mmol/L BUN 22 H (9-20) mg/dL Glucose 118 H (74-99) mg/dL 03/27/24 Range/Units 05:50 ESR (0-20) mm/Hr APTT 46.4 H (22.0-30.0) sec Sodium (137-145) mmol/L Carbon Dioxide (22-30) mmol/L BUN (9-20) mg/dL Glucose (74-99) mg/dL
[2024-03-27 08:57] LABS: Chol/HDL Ratio 2.81 Ratio; LDL Cholesterol,Calculated 62.7 mg/dL (0.0-131.0)
[2024-03-27] MEDS: METOPROLOL TARTRATE 25 MG TAB PO SCH (09:00)
[2024-03-27] MEDS: THIAMINE 100 MG TAB PO SCH (09:00)
[2024-03-27] MEDS: APIXABAN 5 MG TAB PO SCH (09:00)
[2024-03-27] MEDS: MULTIVITAMINS, THERA 1 EACH TAB PO SCH (09:00)
[2024-03-27 12:36] VITALS: RESP 16
--- NOTE | 2024-03-27 13:37 | P.PN ---
Subjective Progress Note Date: 03/27/24 H&P Date: 03/26/24 Chief Complaint: Chest discomfort This is a pleasant 83-year-old gentleman with past medical history significant for prostate cancer status post prostatectomy, hyperlipidemia, CVA 2016, daily alcohol use, morbid obesity, obstructive sleep apnea uses CPAP and multiple other medical issues presented to the ER with constant, dull chest pain since the weekend at family [employer] celebrating the boat races, accompanied by diaphoresis, nausea, no emesis and shortness of breath. Initial troponin negative. Placed on heparin drip and received aspirin. Chest pain continued .evaluated by cardiology, EKGs reviewed-evolving inferior STEMI noted with repeat EKG. Patient was taken to the Consumer Safety Officer. Underwent cardiac catheterization reporting mild CAD including 30% proximal LAD and 30% mid RCA stenosis, normal left-sided filling pressures normal LV function with EF 55 to 60%. Tolerated procedure well. This morning reported some chest discomfort, denies shortness of breath .D-dimer negative. Electrolytes, renal function within normal limits. Telemetry sinus rhythm. 03/27/2024 nitroglycerin weaned off yesterday. CIWA score earlier this morning 1. Last night went into atrial fibrillation, converted to sinus rhythm in the [place] painter. Heparin drip has been discontinued and transitioned to oral Eliquis. Wore his CPAP during the night, currently maintaining O2 sats in the 90s on room air. Denies chest pain, palpitations or shortness of breath. Maintaining O2 sats in the 90s on room air. Complaining of mid sternal, mid epigastric discomfort this morning radiating to posterior shoulder blades greater on the right, received morphine. Pain resolved. gallbladder ultrasound ordered. Objective - Vital Signs Vital signs: Vital Signs Temp 98.2 F 03/27/24 04:00 Pulse 75 03/27/24 07:00 Resp 16 03/27/24 07:00 BP 125/66 03/27/24 07:00 Pulse Ox 92 L 03/27/24 07:00 FiO2 Intake & Output 03/26/24 03/27/24 03/27/24 18:59 06:59 18:59 Intake Total 264.58 220 Output Total 500 775 Balance -235.42 -555 Weight 106.7 kg Intake: Intake, IV Titration 124.58 70 Amount Heparin Sod,Pork in 0.45% 70 NaCl 25,000 unit In 0.45 % NaCl 1 250ml.bag @ 9. 585 UNITS/KG/HR 10 mls/hr IV .Q24H [facility] Rx#: [id number] Nitroglycerin-D5w Pmx 50 80 mg In Dextrose/Water 1 250ml.bag @ 0 mls/hr IV . [facility] Rx#: [id number] Nitroglycerin-D5w Pmx 50 44.58 mg In Dextrose/Water 1 250ml.bag @ 5 MCG/MIN 1.5 mls/hr IV .Q24H [facility] Rx#: [id number] Oral 140 150 Output: Urine 500 775 Other: Voiding Method Toilet # Voids 0 1 - Exam VITAL SIGNS: [As above] GENERAL: Alert and oriented x 3, sitting up in bed, no acute distress HEENT: Normocephalic, atraumatic conjunctivae normal. eyes normal. NECK: Supple, no JVD. CARDIOVASCULAR: S1, S2 regular. Systolic murmur. RESPIRATION: Unlabored, equal air entry, clear to auscultation. ABDOMEN: Obese, soft, nondistended, nontender. No guarding. no masses palpable. +BS LEGS: No edema. no swelling NERVOUS SYSTEM: Cranial N 2-12 grossly normal. No focal deficits. Strength and sensation grossly intact. Skin: Warm and dry, no rash - Labs CBC & Chem 7: 03/27/24 05:50 03/26/24 22:52 Labs: Abnormal Lab Results - Last 24 Hours (Table) 03/26/24 03/26/24 03/26/24 Range/Units 03:50 22:52 22:52 ESR 24 H (0-20) mm/Hr APTT 30.1 H (22.0-30.0) sec Sodium 133 L (137-145) mmol/L Carbon Dioxide 21 L (22-30) mmol/L BUN 22 H (9-20) mg/dL Glucose 118 H (74-99) mg/dL 03/27/24 Range/Units 05:50 ESR (0-20) mm/Hr APTT 46.4 H (22.0-30.0) sec Sodium (137-145) mmol/L Carbon Dioxide (22-30) mmol/L BUN (9-20) mg/dL Glucose (74-99) mg/dL Assessment and Plan Assessment: Acute inferior STEMI, status post cardiac cath., Mild CAD -30% proximal LAD and 30% mid RCA stenosis, normal LV function. History of CVA 2016 Alcohol use, daily, Hypertension Hyperlipidemia Obstructive sleep apnea, uses CPAP Morbid obesity, BMI 35 Prostate cancer history of prostatectomy Plan: Continue on current medication resume ,monitoring and symptomatic treatment. Gallbladder ultrasound ordered .maintain [facility] protocol. Discharge planning in progress. The impression and plan of care has been dictated as directed. : I performed a history and examination of this patient, discussed the same with the dictator. I agree with the dictator's note ,documented as a scribe. Any additional findings or plans will be noted.
--- NOTE | 2024-03-27 14:37 | US ---
EXAMINATION TYPE: US gallbladder DATE OF EXAM: 03/27/2024 COMPARISON: NONE CLINICAL INDICATION: Male, 83 years old with history of midsternal epigastric pain; epigastric pain TECHNIQUE: Multiple sonographic images of the right upper quadrant are obtained. FINDINGS: EXAM MEASUREMENTS: Liver Length: 17.5 cm Gallbladder Wall: 0.26 cm CBD: 0.39 cm Right Kidney: 12.5 x 5.7 x 5.6 cm SUBSTANCE ABUSE THERAPIST NOTES: Pancreas: wnl Liver: heterogeneous and enlarged Gallbladder: wnl Evidence for sonographic Fitch's sign: No CBD: wnl Right Kidney: wnl Right kidney is unremarkable without evidence of hydronephrosis. Common bile duct is within normal li mits. Gallbladder is shows no wall thickening, gallstones, or surrounding fluid. Negative sonographic Fitch's sign. Pancreas is unremarkable. Liver is diffusely heterogenous and enlarged with increased echogenicity. No focal lesion identified. IMPRESSION: 1. No ultrasound evidence for acute process. Unremarkable gallbladder. 2. Hepatomegaly with hepatic steatosis.
[2024-03-27 16:38] VITALS: TEMP 97.6
[2024-03-27 16:40] VITALS: BP 132/72; PULSE 87
== END 2024-03-27 18:18 | disposition home or self-care (01) | DRG 282 ==
LOC: EC 23:32 → 3SCARD 03-26 00:12 → 2SICU 03-26 01:29
PROVIDERS: ADMIT Family Medicine; ATTEND Family Medicine
PROC: B2151ZZ Fluoroscopy of Left Heart using Low Osmolar Contrast (ICD-10-PCS; principal; 2024-03-26 01:11)
PROC: 4A023N7 Measurement of Cardiac Sampling and Pressure, Left Heart, Percutaneous Approach (ICD-10-PCS; principal; 2024-03-26 01:11)
PROC: B2111ZZ Fluoroscopy of Multiple Coronary Arteries using Low Osmolar Contrast (ICD-10-PCS; principal; 2024-03-26 01:11)
DX: I21.19 ST elevation (STEMI) myocardial infarction involving other coronary artery of inferior wall (principal); E66.01 Morbid (severe) obesity due to excess calories; I48.0 Paroxysmal atrial fibrillation; Z68.35 Body mass index [BMI] 35.0-35.9, adult; I10 Essential (primary) hypertension; F10.10 Alcohol abuse, uncomplicated; I25.10 Atherosclerotic heart disease of native coronary artery without angina pectoris; E78.00 Pure hypercholesterolemia, unspecified; G47.33 Obstructive sleep apnea (adult) (pediatric); Z79.899 Other long term (current) drug therapy; Z86.73 Personal history of transient ischemic attack (TIA), and cerebral infarction without residual deficits; Z85.46 Personal history of malignant neoplasm of prostate; Z96.649 Presence of unspecified artificial hip joint
CPT/HCPCS: 36415; 71045; 76705; 80053; 80061; 83690; 83735; 83880; 84100; 84484; 85025; 85049; 85379; 85610; 85652; 85730; 93005; 93308; 93458; 96365; 99291

== ENCOUNTER → 2024-05-06 | Outpatient (CLI) | payer MEDICARE ==
--- NOTE | 2024-05-06 16:32 | NM ---
EXAMINATION TYPE: NM hepatobiliary w EF DATE OF EXAM: 05/06/2024 COMPARISON: Ultrasound 03/27/2024 CLINICAL INDICATION: Male, 83 years old with history of R10.816 epigastric abdominal tenderness; TECHNIQUE: After the intravenous administration of 5.1 mCi Tc 99m Mebrofenin hepatobiliary scintigrap hy is performed. Immediate images post injection. FINDINGS: There is satisfactory initial accumulation of tracer by the liver. The gallbladder is visualized wit hin 16 minutes. The small bowel activity is noted within 2 minutes. At one hour 8 ounces of oral en sure plus is given to mimic CCK and gallbladder ejection fraction is calculated decreased at 30%. IMPRESSION: 1. No evidence for acute cholecystitis. 2. However, the diminished gallbladder ejection fraction can be seen with chronic cholecystitis or bi liary dyskinesia.
== END | disposition home or self-care (01) ==
LOC: RADNMMAIN 12:29
PROVIDERS: ATTEND Family Medicine
DX: R10.816 Epigastric abdominal tenderness
CPT/HCPCS: 78226

== ENCOUNTER → 2024-05-06 | Outpatient (CLI) | payer MEDICARE ==
[2024-05-06 19:06] LABS: Basophils # (A) 0.07 X 10*3/uL (0.00-0.10); Basophils % (A) 1.1 %; Eosinophils # (A) 0.38 X 10*3/uL (0.04-0.35); Eosinophils % (A) 5.7 %; HCT 42.4 % (39.6-50.0); HGB 13.6 g/dL (13.0-17.0); Lymphocytes # (A) 2.12 X 10*3/uL (0.90-5.00); Lymphocytes % (A) 31.8 %; MCH 30.7 pg (27.0-32.0); MCHC 32.1 g/dL (32.0-37.0); MCV 95.7 FL (80.0-97.0); Mean Platelet Volume 10.4 FL (9.5-12.2); Monocytes # (A) 0.48 X 10*3/uL (0.20-1.00); Monocytes % (A) 7.2 %; NRBC Per 100 WBC 0 X 10*3/uL (0.00-0.01); Neutrophils # (A) 3.55 X 10*3/uL (1.80-7.70); Neutrophils % (A) 53.3 %; Platelet Count 310 X 10*3/uL (140-440); RBC 4.43 X 10*6/uL (4.40-5.60); RDW 12.4 % (11.5-14.5); WBC 6.66 X 10*3/uL (4.50-10.00)
[2024-05-06 21:08] LABS: ALT 44 U/L (10-49); AST 30 U/L (14-35); Albumin 4.1 g/dL (3.8-4.9); Albumin/Globulin Ratio 1.46 Ratio (1.60-3.17); Alkaline Phosphatase 128 U/L (41-126); BUN/Creat Ratio 23.73 Ratio (12.00-20.00); Blood Urea Nitrogen 26.1 mg/dL (9.0-27.0); Calcium 9.6 mg/dL (8.7-10.3); Carbon Dioxide 23.1 mmol/L (21.6-31.8); Chloride 103 mmol/L (96-109); Globulin 2.8 g/dL (1.6-3.3); Glucose 129 mg/dL (70-110); Potassium 4.5 mmol/L (3.5-5.5); Sodium 139 mmol/L (135-145); Total Bilirubin 0.3 mg/dL (0.3-1.2); Total Protein 6.9 g/dL (6.2-8.2)
== END | disposition home or self-care (01) ==
LOC: LABWHC1 15:14
PROVIDERS: ATTEND Internal Medicine Gastroenterology
DX: R74.01 Elevation of levels of liver transaminase levels (principal)
CPT/HCPCS: 36415; 80053; 85025

== ENCOUNTER → 2024-06-12 | Outpatient (CLI) | payer MEDICARE ==
[2024-06-12 14:46] VITALS: BP 117/62; PULSE 64; RESP 18; TEMP 97.8
--- NOTE | 2024-06-12 15:20 | P.PROGSL ---
Subjective DATE: 06/12/2024 FOLLOW UP VISIT. Patient with obstructive sleep apnea hypopnea syndrome return to sleep center for follow-up visit. Information from previous visit have been reviewed. This is first visit after patient received new CPAP unit. Patient is using PAP equipment every night for the whole night, getting PAP supplies in time. The patient does not have significant problems with the mask, PAP unit and humidification. [place] sleepiness scale is 7, which is normal. I checked information from PAP unit. PAP unit pressure 5-15, average 10.8 cm H2O. Usage is 100% for more then 4 hours, average 10.5 hours per night. Leak is 22.6 l/m, which is in acceptable range. Apnea Hypopnea Index is 3.3, which is normal. MEDICATIONS have been reviewed, please see below. During physical exam: GENERAL: A pleasant patient without any distress. VITAL SIGNS: Please see below, weight is 220.0 lbs. HEENT: PERRLA, EOMI.low position of soft palate, Mallapati 4 . NECK: Supple. No JVD. LUNGS: Clear to percussion and to auscultation. Good air exchange. No wheezing or rhonchi. HEART: S1, S2 regular. ABDOMEN: Soft and nontender. Slightly obese EXTREMITIES: No clubbing or cyanosis. TELEVISION SPECIALIST: Awake, alert, and oriented x3. No focal deficit. Impressions: 1. Obstructive sleep apnea-hypopnea syndrome. Patient demonstrated great compliance with treatment, benefiting from treatment. 2. Mild obesity, patient lost 13 pounds since previous visit. 3. Hypertension. 4. Status post stroke in 2016. 5. Hyperlipidemia. 6. 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 7. Status post prostatectomy for cancer. 8. Status post left hip replacement. 9. Status post left shoulder replacement. 10. Status post back fusion. Plan: 1. Continue using PAP equipment every night for the whole night. 2. Sleep hygiene with regular time in bed for at least 7.5-8 hours 3. PAP unit should stay lower then position of the head. 4. Advised patient to remove all remaining water from humidifier canister daily and make it dry after each usage. Refill canister with fresh distilled water before each usage. 5. Watching weight. 6. Precautions related to driving. No driving if feel any sleepiness. 7. I will maintain prescription for PAP supplies including mask, tube, filters. 8. Follow up visit in 8 months or earlier if patient has any problems. Thank you very much for allowing me to participate in the management of your patient. Salvador Aly MD, PhD, FAASM. Diplomat of [place] [employer], Sleep Medicine Board by [place] [employer] [facility] [place] cc: Ronnie Guillermo MD Objective - Vital Signs Vital Signs: Vital Signs Temp 97.8 F 06/12/24 14:45 Pulse 64 06/12/24 14:45 Resp 18 06/12/24 14:45 BP 117/62 06/12/24 14:45 Pulse Ox 95 06/12/24 14:45 FiO2 Intake & Output 06/11/24 06/12/24 06/12/24 18:59 06:59 18:59 Weight 99.79 kg Home Medications: Home Medications Medication Instructions Recorded Confirmed Type amLODIPine [Norvasc] 5 mg PO DAILY 02/10/17 03/26/24 History Pravastatin Sodium [Pravachol] 80 mg PO DAILY 03/26/24 03/26/24 History allopurinoL 300 mg PO DAILY 03/26/24 03/26/24 History Apixaban [Eliquis] 5 mg PO BID #60 tab 03/27/24 Rx Metoprolol Succinate (ER) [Toprol 25 mg PO DAILY #30 tab 03/27/24 Rx XL]
== END | disposition home or self-care (01) ==
LOC: 3 N SLEEP 14:16
PROVIDERS: ATTEND Internal Medicine
CPT/HCPCS: 99212

== ENCOUNTER 2024-07-23 11:16 | Emergency (ER) | payer MEDICARE ==
[2024-07-23 11:35] VITALS: RESP 18; TEMP 97.4
[2024-07-23 11:57] LABS: Basophils # (A) 0.1 k/uL (0-0.2); Basophils % (A) 1 %; Eosinophils # (A) 0.3 k/uL (0-0.7); Eosinophils % (A) 4 %; HCT 46.9 % (39.0-53.0); HGB 15.6 gm/dL (13.0-17.5); Lymphocytes # (A) 2.7 k/uL (1.0-4.8); Lymphocytes % (A) 34 %; MCH 30.7 pg (25.0-35.0); MCHC 33.3 g/dL (31.0-37.0); MCV 92.2 fL (80.0-100.0); Mean Platelet Volume 8.6; Monocytes # (A) 0.4 k/uL (0-1.0); Monocytes % (A) 5 %; Neutrophils # (A) 4.4 k/uL (1.3-7.7); Neutrophils % (A) 54 %; Platelet Count 203 k/uL (150-450); RBC 5.09 m/uL (4.30-5.90); RDW 15.1 % (11.5-15.5)
[2024-07-23 12:05] LABS: INR 1.1 (<1.2); Partial Thromboplastin Time 26.5 sec (22.0-30.0); Prothrombin Time 11.6 sec (10.0-12.5)
[2024-07-23 12:08] LABS: ALT 35 U/L (4-49); AST 38 U/L (17-59); African American GFR (CKD) 81 (>60 ml/min/1.73 sqM); Albumin 4.6 g/dL (3.5-5.0); Alkaline Phosphatase 106 U/L (38-126); Anion Gap 10 mmol/L; Blood Urea Nitrogen 18 mg/dL (9-20); Calcium 9.5 mg/dL (8.4-10.2); Carbon Dioxide 23 mmol/L (22-30); Chloride 105 mmol/L (98-107); Glucose 121 mg/dL (74-99); Non-African American GFR(CKD) 70 (>60 ml/min/1.73 sqM); Potassium 4.3 mmol/L (3.5-5.1); Sodium 138 mmol/L (137-145); Total Bilirubin 0.7 mg/dL (0.2-1.3); Total Protein 7.6 g/dL (6.3-8.2)
--- NOTE | 2024-07-23 12:13 | CT ---
EXAMINATION TYPE: CT brain cspine wo con CT DLP: 1541.3 mGycm, Automated exposure control for dose reduction was used. DATE OF EXAM: 07/23/2024 11:49 AM COMPARISON: CT brain 10/19/2020, MRI brain 08/06/2019, CTA head and neck 03/07/2017, CT brain C-spine 03/07. CLINICAL INDICATION:Male, 84 years old with history of head injury of eliquis; FALL ON ELLIQUIS. CODE COAG TECHNIQUE: Brain: Multiple axial CT images of the brain were obtained without IV contrast. Cspine: Axial CT images from the skull base to the inferior aspect of T2 we obtained without intraven ous contrast. Coronal and sagittal reformatted images were also reviewed. FINDINGS: Brain: Extra-axial spaces: No abnormal extra-axial fluid collections. Ventricular system: Within normal limits Cerebral parenchyma: Cerebral atrophy. No acute intraparenchymal hemorrhage or mass effect. The esteban -white junction is well differentiated. Cerebellum: Unremarkable. Mass effect: No evidence of midline shift. Intracranial vasculature: Atherosclerotic calcifications of the intracranial vessels. Soft tissues: Acute posterior right parietal scalp hematoma measuring up to 1.4 cm in thickness. Calvarium/osseous structures: No depressed skull fracture. Paranasal sinuses and mastoid air cells: The mastoid air cells are clear. Moderate mucosal thickening of the paranasal sinuses. Visualized orbits: Bilateral aphakia Cervical spine: Fracture: None. Osseous structures: Multilevel degenerative disc disease changes with endplate spurring and disc oste ophyte complex's. Vertebral alignment: Degenerative grade 1 anterolisthesis of C4 on C5 and C6 on C7 with mild retrolis thesis of C6 on C7. Spinal canal/Neural Foramina: Disc osteophyte complexes at C4-C5, C5-C6, C6-C7 with at least mild spi nal canal stenosis. Facet joint uncovertebral joint arthropathy scattered throughout the cervical spi ne with varying degrees of neural foraminal stenosis. Fusion of the left-sided C4-C6 facet joints. Neck soft tissues: Prevertebral soft tissues are within normal limits. Other: The airway is patent. The lung apices are clear. Bilateral carotid bulb calcifications. IMPRESSION: 1. No acute intracranial process. 2. Acute posterior right parietal scalp hematoma measuring up to 1.4 cm in thickness. 3. Moderate paranasal sinus disease. 4. No evidence of cervical spine fracture. 5. Moderate multilevel degenerative disc disease. 6. Degenerative grade 1 anterolisthesis of C4 on C5 and C6 on C7 with mild retrolisthesis of C6 on C 7. [facility], , 07/23/2024 12:11 PM
--- NOTE | 2024-07-23 12:22 | XR ---
EXAMINATION TYPE: XR chest 2V DATE OF EXAM: 07/23/2024 12:11 PM COMPARISON: Chest radiographs from 01/16/2021 TECHNIQUE: XR chest 2V Frontal and lateral views of the chest. CLINICAL INDICATION:Male, 84 years old with history of Chest Pain; FINDINGS: Lungs/Pleura: There is no evidence of pleural effusion, focal consolidation, or pneumothorax. Chroni c interstitial prominence. Pulmonary vascularity: Unremarkable. Heart/mediastinum: Cardiomediastinal silhouette is enlarged and stable. Musculoskeletal: Multiple level degenerative disc disease changes seen throughout the spine. Left marichuy ulder arthroplasty changes. 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 No acute osseous a bnormality. IMPRESSION: Chronic changes without acute process. No significant change from prior. [facility], , 07/23/2024 12:20 PM
[2024-07-23] MEDS: MORPHINE SULFATE 4 MG/ML SYRINGE IVP STA (13:20)
--- NOTE | 2024-07-23 15:04 | ED ---
Head Injury HPI - General Chief complaint: Head Injury Stated complaint: Fall/on thinners/head injury Time Seen by Provider: 07/23/24 11:30 Source: patient Mode of arrival: wheelchair - History of Present Illness Initial comments: 84-year-old man who presents to the emergency department with a head injury. States that he was outside on a ladder in the garage. He was on the third or fourth step when he fell backwards and hit the back of his head on the cement floor. He is on Eliquis. He developed a significant hematoma to the back of his head. He denies losing consciousness. No neck or back pain. No numbness, tingling or weakness in his extremities. There is no laceration or abrasion appreciated so there is no active bleeding. No reported confusion. Patient does admit to a headache. No vision changes. No ataxia. No reported vomiting. He denies any other injuries including pain to his upper or lower extremities. No chest pain or difficulty breathing. No other alleviating, precipitating or modifying factors - Related Data Home Medications Medication Instructions Recorded Confirmed amLODIPine [Norvasc] 5 mg PO HS 02/10/17 07/23/24 Pravastatin Sodium [Pravachol] 80 mg PO HS 03/26/24 07/23/24 allopurinoL 300 mg PO HS 03/26/24 07/23/24 Acetaminophen Tab [Tylenol Tab] 1,000 mg PO HS 07/23/24 07/23/24 Apixaban [Eliquis] 5 mg PO BID 07/23/24 07/23/24 Metoprolol Succinate (ER) [Toprol 25 mg PO HS 07/23/24 07/23/24 XL] Multivitamins, Thera [Multivitamin 1 tab PO DAILY 07/23/24 07/23/24 (formulary)] Allergies/Adverse reactions: Allergies Allergy/AdvReac Type Severity Reaction Status Date / Time No Known Allergies Allergy Verified 07/23/24 12:55 Review of Systems ROS Statement: Those systems with pertinent positive or pertinent negative responses have been documented in the HPI. ROS Other: All systems not noted in ROS Statement are negative. Past Medical History Past Medical History: Cancer, CVA/TIA, Hyperlipidemia, Sleep Apnea/CPAP/BIPAP Additional Past Medical History / Comment(s): PROTATE CANCER. USES CPAP. CVA 2016 History of Any Multi-Drug Resistant Organisms: None Reported Past Surgical History: Back Surgery, Bladder Surgery, Orthopedic Surgery Additional Past Surgical History / Comment(s): LOWER BACK SURGERY. GROWTH ON URETER? hip replacement Past Anesthesia/Blood Transfusion Reactions: No Reported Reaction Past Psychological History: No Psychological Hx Reported Smoking Status: Never smoker Past Alcohol Use History: Occasional Past Drug Use History: None Reported - Past Family History Mother Family Medical History: No Reported History General Exam General appearance: alert, in no apparent distress Head exam: Present: normocephalic, other (Patient has a large right occipital hematoma measuring 5 x 5 cm. No underlying step-off. No external bleeding) Eye exam: Present: normal appearance, PERRL, EOMI. Absent: scleral icterus, conjunctival injection, periorbital swelling ENT exam: Present: normal exam, mucous membranes moist Neck exam: Present: normal inspection. Absent: tenderness, meningismus, lymphadenopathy Respiratory exam: Present: normal lung sounds bilaterally. Absent: respiratory distress, wheezes, rales, rhonchi, stridor Cardiovascular Exam: Present: regular rate, normal rhythm, normal heart sounds. Absent: systolic murmur, diastolic murmur, rubs, gallop, clicks GI/Abdominal exam: Present: soft, normal bowel sounds. Absent: distended, tenderness, guarding, rebound, rigid Extremities exam: Present: normal inspection, full ROM, normal capillary refill. Absent: tenderness, pedal edema, joint swelling, calf tenderness Back exam: Present: normal inspection Neurological exam: Present: alert, oriented X3, CN II-XII intact Psychiatric exam: Present: normal affect, normal mood Skin exam: Present: warm, dry, intact, normal color. Absent: rash Course Vital Signs 07/23/24 07/23/24 07/23/24 11:28 13:24 15:21 Temperature 97.4 F L Pulse Rate 61 56 L 61 Respiratory 18 18 18 Rate Blood Pressure 167/71 172/7 125/71 O2 Sat by Pulse 98 95 95 Oximetry Medical Decision Making - Medical Decision Making Was pt. sent in by a medical professional or institution (, PA, [employer], urgent care, hospital, or jail...) When possible be specific @ -No Did you speak to anyone other than the patient for history (EMS, parent, family, police, friend...)? What history was obtained from this source @ -Spoke with the for history Did you review nursing and triage notes (agree or disagree)? Why? @ -I reviewed and agree with nursing and triage notes Were old charts reviewed (outside hosp., previous admission, EMS record, old EKG, old radiological studies, urgent care reports/EKG's, jail records)? Report findings @ -No old charts were reviewed Differential Diagnosis (chest pain, altered mental status, abdominal pain women, abdominal pain men, vaginal bleeding, weakness, fever, dyspnea, syncope, headache, dizziness, GI bleed, back pain, seizure, CVA, palpatations, mental health, musculoskeletal)? @ -Subarachnoid, subdural, skull fracture, epidural, scalp hematoma EKG interpreted by me (3pts min.). @ -Yes and demonstrates sinus bradycardia with a rate of 56. CT interval 204. QRS 102. QTc of 438. No acute ST segment elevations or depressions X-rays interpreted by me (1pt min.). @ -Yes and demonstrates no acute process CT interpreted by me (1pt min.). @ -Yes and demonstrates no intracranial injury U/S interpreted by me (1pt. min.). @ -None done What testing was considered but not performed or refused? (CT, X-rays, U/S, labs)? Why? @ -None What meds were considered but not given or refused? Why? @ -None Did you discuss the management of the patient with other professionals (professionals i.e. , PA, [employer], lab, RT, psych nurse, social services manager, ginner, teacher, telecommunications officer, business case analyst)? Give summary @ -No Was smoking cessation discussed for >3mins.? @ -No Was critical care preformed (if so, how long)? @ -No Were there social determinants of health that impacted care today? How? (Homelessness, low income, unemployed, alcoholism, drug addiction, transportation, low edu. Level, literacy, decrease access to med. care, group home, rehab)? @ -No Was there de-escalation of care discussed even if they declined (Discuss DNR or withdrawal of care, Hospice)? DNR status @ -No What co-morbidities impacted this encounter? (DM, HTN, Smoking, COPD, CAD, Cancer, CVA, ARF, Chemo, Hep., AIDS, mental health diagnosis, sleep apnea, morbid obesity)? @ -CVA Was patient admitted / discharged? Hospital course, mention meds given and route, prescriptions, significant lab abnormalities, going to OR and other pertinent info. @ -Upon arrival patient seen and evaluated in hallway 19. He does meet code coag criteria and therefore the patient is sent immediately for CT of his head and neck. He was provided with pain medications. Chest x-ray was also performed as patient does start to admit to some chest tightness and shortness of breath. Laboratory studies are conducted and reviewed. Patient is reevaluated. No focal neurologic deficit and no worsening of his neurologic status after several hours of observation in the emergency department. Patient does have improvement in his headache. At this time the patient is stable for discharge home. He is to be watched closely by for any neurologic symptoms within the next 24 hours. He must return immediately to the emergency de partment for any concerning symptoms including worsening headache, vomiting or confusion. I recommended Tylenol for pain control. and patient were agreeable to this plan the patient was discharged home in stable condition Undiagnosed new problem with uncertain prognosis? @ -No Drug Therapy requiring intensive monitoring for toxicity (Heparin, Nitro, Insulin, Cardizem)? @ -No Were any procedures done? @ -No Diagnosis/symptom? @ -Acute fall off ladder, acute blunt head trauma, right scalp hematoma, Eliquis coagulopathy Acute, or Chronic, or Acute on Chronic? @ -Acute Uncomplicated (without systemic symptoms) or Complicated (systemic symptoms)? @ -Complicated Side effects of treatment? @ -No Exacerbation, Progression, or Severe Exacerbation? @ -No Poses a threat to life or bodily function? How? (Chest pain, [place], [place], pneumonia, PE, COPD, DKA, ARF, appy, cholecystitis, CVA, Diverticulitis, Homicidal, Suicidal, threat to staff... and all critical care pts) @ -Yes this patient had a head injury on thinners - Lab Data Result diagrams: 07/23/24 11:41 07/23/24 11:41 Lab Results 07/23/24 07/23/24 07/23/24 Range/Units 11:41 11:41 11:41 WBC 8.0 (3.8-10.6) k/uL RBC 5.09 (4.30-5.90) m/uL Hgb 15.6 (13.0-17.5) gm/dL Hct 46.9 (39.0-53.0) % MCV 92.2 (80.0-100.0) fL MCH 30.7 (25.0-35.0) pg MCHC 33.3 (31.0-37.0) g/dL RDW 15.1 (11.5-15.5) % Plt Count 203 (150-450) k/uL MPV 8.6 Neutrophils % 54 % Lymphocytes % 34 % Monocytes % 5 % Eosinophils % 4 % Basophils % 1 % Neutrophils # 4.4 (1.3-7.7) k/uL Lymphocytes # 2.7 (1.0-4.8) k/uL Monocytes # 0.4 (0-1.0) k/uL Eosinophils # 0.3 (0-0.7) k/uL Basophils # 0.1 (0-0.2) k/uL PT 11.6 (10.0-12.5) sec INR 1.1 (<1.2) APTT 26.5 (22.0-30.0) sec Sodium 138 (137-145) mmol/L Potassium 4.3 (3.5-5.1) mmol/L Chloride 105 (98-107) mmol/L Carbon Dioxide 23 (22-30) mmol/L Anion Gap 10 mmol/L BUN 18 (9-20) mg/dL Creatinine 0.99 (0.66-1.25) mg/dL Est GFR (CKD-EPI)AfAm 81 (>60 ml/min/1.73 sqM) Est GFR (CKD-EPI)NonAf 70 (>60 ml/min/1.73 sqM) Glucose 121 H (74-99) mg/dL Calcium 9.5 (8.4-10.2) mg/dL Magnesium 2.0 (1.6-2.3) mg/dL Total Bilirubin 0.7 (0.2-1.3) mg/dL AST 38 (17-59) U/L ALT 35 (4-49) U/L Alkaline Phosphatase 106 (38-126) U/L Troponin I (0.000-0.034) ng/mL Total Protein 7.6 (6.3-8.2) g/dL Albumin 4.6 (3.5-5.0) g/dL 07/23/24 Range/Units 11:41 WBC (3.8-10.6) k/uL RBC (4.30-5.90) m/uL Hgb (13.0-17.5) gm/dL Hct (39.0-53.0) % MCV (80.0-100.0) fL MCH (25.0-35.0) pg MCHC (31.0-37.0) g/dL RDW (11.5-15.5) % Plt Count (150-450) k/uL MPV Neutrophils % % Lymphocytes % % Monocytes % % Eosinophils % % Basophils % % Neutrophils # (1.3-7.7) k/uL Lymphocytes # (1.0-4.8) k/uL Monocytes # (0-1.0) k/uL Eosinophils # (0-0.7) k/uL Basophils # (0-0.2) k/uL PT (10.0-12.5) sec INR (<1.2) APTT (22.0-30.0) sec Sodium (137-145) mmol/L Potassium (3.5-5.1) mmol/L Chloride (98-107) mmol/L Carbon Dioxide (22-30) mmol/L Anion Gap mmol/L BUN (9-20) mg/dL Creatinine (0.66-1.25) mg/dL Est GFR (CKD-EPI)AfAm (>60 ml/min/1.73 sqM) Est GFR (CKD-EPI)NonAf (>60 ml/min/1.73 sqM) Glucose (74-99) mg/dL Calcium (8.4-10.2) mg/dL Magnesium (1.6-2.3) mg/dL Total Bilirubin (0.2-1.3) mg/dL AST (17-59) U/L ALT (4-49) U/L Alkaline Phosphatase (38-126) U/L Troponin I <0.012 (0.000-0.034) ng/mL Total Protein (6.3-8.2) g/dL Albumin (3.5-5.0) g/dL Disposition Clinical Impression: Fall from ladder, Scalp hematoma, Head injury Disposition: HOME SELF-CARE Condition: Stable Instructions (If sedation given, give patient instructions): Head Injury (ED) Additional Instructions: Please use the pain medication with extreme caution. If your symptoms are worsening or you develop any new symptoms, you need to return to the emergency department. Is patient prescribed a controlled substance at d/c from ED?: No Referrals: Ronnie Guillermo MD [Primary Care Provider] - 1-2 days Time of Disposition: 15:04
[2024-07-23] MEDS: ACET/COD 300 MG/30 MG STARTER PACK 6 TAB BTL PO STA (15:08)
[2024-07-23 15:22] VITALS: BP 125/71; PULSE 61
== END 2024-07-23 15:22 | disposition home or self-care (01) ==
LOC: EC 11:16
DX: S00.03XA Contusion of scalp, initial encounter (principal); Z86.73 Personal history of transient ischemic attack (TIA), and cerebral infarction without residual deficits; W11.XXXA Fall on and from ladder, initial encounter
CPT/HCPCS: 36415; 93005; 80053; 83735; 84484; 85025; 85610; 85730; 71046; 72125; 70450; 99284; 96374; J2270